=== PATIENT | male | born 1960 | race Caucasian/White ===

== ENCOUNTER 2020-12-07 08:22 | Outpatient (CLI) | payer OTHER, SELFPAY ==
[2020-12-07 18:41] LABS: Basophils Percent Auto 0.8 % (0.2-1.2); Eosinophils Absolute Auto 0.2 K/mm3 (0-0.3); Eosinophils Percent Auto 3.5 % (0-4.4); Hematocrit 41.2 % (42.0-52.0); Hemoglobin 14.6 g/dL (14.0-18.0); Immature Granulocyte Absolute 0.01 K/mm3 (0.00-0.031); Immature Granulocyte Percent A 0.2 % (0-0.5); Lymphocytes Absolute Auto 1.04 K/mm3 (0.9-3.2); Lymphocytes Percent Auto 21.7 % (18.3-44.2); Mean Corpuscular HGB Conc 35.4 g/dl (32-36); Mean Corpuscular Hemoglobin 32.5 pg (26-34); Mean Corpuscular Volume 91.8 fl (80-100); Mean Platelet Volume 10.1 fl (7.4-10.4); Monocytes Absolute Auto 0.6 K/mm3 (0.1-0.6); Monocytes Percent Auto 11.9 % (2.6-8.5); Neutrophils Percent Auto 61.9 % (45.5-73.1); Platelet Count Result 223 k/mm3 (150-375); Red Blood Count 4.49 M/mm3 (4.6-6.20); Red Cell Distribution Width 12.8 % (11.5-14.5); White Blood Count 4.8 K/mm3 (4.5-10.0)
[2020-12-07 18:44] LABS: Add Urine Microscopic? YES; Appearance Urine Clear (Clear); Bilirubin Urine Negative (Negative); Blood Urine Negative (Negative); Color Urine Yellow (Yellow); Glucose Urine UA 1+ mg/dL (Negative); Ketones Urine Negative (Negative); Leukocyte Esterase Ur Negative LEU/UL (Negative); Mucus Urine Rare /lpf; Nitrate Urine Negative (Negative); Protein Urine Negative (Negative); RBC Urine 0-2 /hpf (0-2); Specific Grav Ur 1.024 (1.001-1.035); Squamous Epithelial Cell Urine Rare /hpf (Few); Urobilinogen Urine Negative mg/dL (<2.0); WBC Urine 0-3 /hpf
[2020-12-07 18:54] LABS: Alanine Aminotransferase 30 U/L (4-50); Albumin Level 4.2 g/dL (3.5-5.1); Alkaline Phosphatase 51 U/L (38-126); Anion Gap 7 mmol/L (8-16); Aspartate Amino Transferase 21 U/L (17-59); Bilirubin,Total 0.7 mg/dL (0.2-1.3); Blood Urea Nitrogen 21 mg/dL (9-20); CRP 0.7 mg/dL (<1.0); Calcium 9.7 mg/dL (8.4-10.2); Carbon Dioxide 28 mmol/L (22-30); Chloride 103 mmol/L (98-107); Cholesterol 108 mg/dL (0-200); Estimated Glomerular Filt Rate > 60; Glucose 243 mg/dL (75-110); HDL Direct 34 mg/dL; Potassium 4.6 mmol/L (3.4-5.0); Sodium 138 mmol/L (137-145); Triglycerides 63 mg/dL (<150)
[2020-12-07 19:03] LABS: LDL Cholesterol Direct 61 mg/dL
[2020-12-07 19:08] LABS: Vitamin D 25 Hydroxy 57.9 ng/mL
[2020-12-07 19:22] LABS: Prostate Specific Antigen 2.8 ng/mL (< OR = 4.0)
[2020-12-07 19:58] LABS: Folic Acid > 20.0 ng/mL (2.76->20)
[2020-12-09 16:55] LABS: Thyroid Stimulating Immunoglob <89 % baseline (<140)
[2020-12-11 07:55] LABS: Testosterone Free 51.3 pg/mL (35.0-155.0); Testosterone Total 207 ng/dL (250-1100)
== END 2020-12-07 08:23 | disposition home or self-care (01) ==
LOC: ANHBWCLAB 08:25
PROVIDERS: PCP Family Medicine; Visit Provider Family Medicine
DX: Z51.81 Encounter for therapeutic drug level monitoring (principal); Z79.899 Other long term (current) drug therapy; Z82.62 Family history of osteoporosis; J45.909 Unspecified asthma, uncomplicated; R53.83 Other fatigue; E11.65 Type 2 diabetes mellitus with hyperglycemia; L72.3 Sebaceous cyst; N99.89 Other postprocedural complications and disorders of genitourinary system; Z00.00 Encounter for general adult medical examination without abnormal findings; I10 Essential (primary) hypertension
CPT/HCPCS: 36415; 80053; 80061; 81001; 82306; 82607; 82746; 84153; 84402; 84403; 84445; 84681; 85025; 86140; G0103

== ENCOUNTER 2021-03-07 07:47 | Outpatient (CLI) | payer OTHER, SELFPAY ==
[2021-03-07 20:26] LABS: Anion Gap 12 mmol/L (8-16); Blood Urea Nitrogen 19 mg/dL (9-20); Carbon Dioxide 25 mmol/L (22-30); Chloride 102 mmol/L (98-107); Estimated Glomerular Filt Rate > 60; Glucose 230 mg/dL (65-110); Potassium 4.4 mmol/L (3.4-5.0); Sodium 139 mmol/L (137-145)
[2021-03-07 20:32] LABS: Hemoglobin A1C 8.9 % (<5.7)
[2021-03-07 20:59] LABS: Prostate Specific Antigen 2.5 ng/mL (< OR = 4.0)
== END 2021-03-07 07:48 | disposition home or self-care (01) ==
LOC: ANHBWCLAB 07:48
PROVIDERS: PCP Family Medicine; Visit Provider Family Medicine
DX: E11.65 Type 2 diabetes mellitus with hyperglycemia (principal); I10 Essential (primary) hypertension
CPT/HCPCS: 36415; 80048; 83036; 84153; G0103

== ENCOUNTER 2021-04-02 09:09 | Emergency (ER) | payer OTHER, SELFPAY ==
--- NOTE | ~2021-04-02 | XR_ITS ---
EXAMINATION: XR abdomen/kub 1V DATE: 04/02/2021 09:58 INDICATION: Left flank pain TECHNIQUE: A supine view of the abdomen on 2 radiographs was obtained. COMPARISON: None. FINDINGS: 6 mm calcification projecting over the upper pole of the right kidney most likely a renal stone altho ugh differential includes a gallstone. 3 mm likely proximal left ureteral stone projecting along the lateral margin of the left psoas muscle near the tip of the left transverse process of L3. Multiple p hleboliths in the pelvis. Large amount of stool in the cecum, ascending and transverse colon which pa rtially obscures the region of the left kidney and lower pole of the right kidney. Lung bases are torsten ar. Heart size is normal. IMPRESSION: 1. Likely bilateral nephrolithiasis with 6 mm stone projecting over the upper pole of the right kidne y and 3 mm stone likely at the proximal left ureter. Reviewed, dictated and finalized at location A. IMPRESSION: 1. Likely bilateral nephrolithiasis with 6 mm stone projecting over the upper p ole of the right kidney and 3 mm stone likely at the proximal left ureter.
[2021-04-02 09:14] VITALS: BP 154/98; PULSE 81; RESP 16; TEMP 37.5; O2SAT 98
[2021-04-02 09:32] VITALS: BP 154/98; PULSE 81; RESP 16; TEMP 37.5; O2SAT 98
--- NOTE | 2021-04-02 09:57 | ED.BACK ---
HPI - Back Pain/Injury General Chief Complaint: Back Pain/Injury Stated Complaint: lower back left side pain Time Seen by Provider: 04/02/21 09:58 Source: patient and RN notes reviewed Mode of arrival: ambulatory Limitations: no limitations History of Present Illness HPI Narrative: 61-year-old male presents with concern for left flank pain. Reports symptoms started 3 days ago, describes a sharp knifelike pain. Denies any injury or trauma. Denies any aggravating or relieving factors. He denies fever, abdominal pain, vomiting. Reports less frequent bowel movements than normal, reports he had 3 small bowel movements yesterday but did not feel like he evacuated his bowels. MD elicited complaint: back pain Related Data Home Medications Medication Instructions Recorded Confirmed albuterol 90 mcg/actuation aerosol 90 mcg INHALATION Q6H PRN 08/30/20 04/02/21 inhaler Allergies Allergy/AdvReac Type Severity Reaction Status Date / Time shrimp Allergy Unknown Rash Verified 04/02/21 09:31 cat dander Allergy Rash Verified 04/02/21 09:31 Review of Systems Review of Systems: CONSTITUTIONAL: Denies malaise, chills, sweats, or fever. CARDIOVASCULAR: Denies chest pain, palpitations, or edema. RESPIRATORY: Denies cough or dyspnea. GASTROINTESTINAL: Denies abdominal pain, nausea, vomiting, diarrhea, bloody, or mucous stools. Reports less frequent bowel movements GENITOURINARY: Denies dysuria or hematuria. SKIN: Denies bruising, redness, swelling MUSCULOSKELETAL: Reports left flank pain. Denies joint pain or myalgia. NEUROLOGIC: Denies numbness, weakness All systems reviewed & are unremarkable except as noted in HPI and below PMFSH Past Medical History Medical History Asthma Diabetes Surgical History Surgical History History of colonoscopy History of left knee surgery History of umbilical hernia repair Family History Family History Father Heart problem Acute myocardial infarction Lung cancer Mother Hypertension Lupus Social History Social History Smoking status: Never smoker Tobacco type: cigars and smokeless tobacco Smokeless tobacco user: chewing tobacco Alcohol intake: current Alcohol use details: social Substance use: never 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 There is no relevant family history pertinent to the presenting complaint Exam Narrative: GENERAL: Well-appearing, well-nourished, and in no acute distress. HEAD: Normocephalic, atraumatic. EYES: PERRLA, conjunctivae clear ENT: Mucous membranes moist. NECK: Supple. CHEST: No respiratory distress. Clear to auscultation. No bony deformities, no asymmetry. Speaks in full sentences. HEART: Regular rate and rhythm. No murmur heard. ABDOMEN: Soft, nontender, nondistended, normal active bowel sounds, no palpable masses. No CVA tenderness EXTREMITIES: Grossly normal range of motion, gross normal strength and sensation. SKIN: Warm, dry, no rash. NEURO: Alert and oriented x3. PSYCH: Normal mood and affect Course Course Emergency Course: Patient is aware of diagnosis, understands and agrees to treatment plan. Anticipatory guidance given. Patient agrees to follow-up as directed and is aware of reasons to seek care at the emergency department. Portions of this record may have been created with voice recognition software Vital Signs Vital signs: Vital Signs Temperature 99.5 F 04/02/21 09:14 Pulse Rate 81 04/02/21 09:14 Respiratory Rate 16 04/02/21 09:14 Blood Pressure 154/98 H 04/02/21 09:14 Pulse Oximetry 98 04/02/21 09:14 Temperature 99.5 F 04/02/21 09:32 Pulse Rate
== END 2021-04-02 10:26 | disposition home or self-care (01) ==
PROVIDERS: Emergency Provider Nurse Practitioner; PCP Radiology Diagnostic Radiology
DX: N20.0 Calculus of kidney (principal); J45.909 Unspecified asthma, uncomplicated; E11.9 Type 2 diabetes mellitus without complications
CPT/HCPCS: 74018; 81003; 99213; G0463

== ENCOUNTER 2021-04-05 11:22 | Outpatient (CLI) | payer OTHER, SELFPAY ==
--- NOTE | ~2021-04-05 | XR_ITS ---
EXAMINATION: XR abdomen/kub 1V INDICATION: Left ureteral stone, left flank pain TECHNIQUE: Supine views of the abdomen were obtained on 2 radiographs. COMPARISON: 04/02/2021 FINDINGS: The previously described calcification projecting at the expected location of the proximal left ureter is not definitely identified. There is a 6 mm stone of the right kidney upper pole. Multi ple phleboliths are noted in the pelvis. The bowel gas pattern is normal. The visualized lung bases a re clear. There is mild osteoarthritis of the hips. IMPRESSION: 1. Previous suspected left proximal ureteral stone not definitely identified. 2. Right nephrolithiasis. Reviewed, dictated and finalized at location A.
== END 2021-04-05 11:23 | disposition home or self-care (01) ==
LOC: ANHIMG 11:28
PROVIDERS: PCP Family Medicine; Visit Provider Nurse Practitioner Family
DX: N20.0 Calculus of kidney (principal)
CPT/HCPCS: 74018

== ENCOUNTER 2021-04-05 12:24 | Outpatient (CLI) | payer OTHER, SELFPAY ==
[2021-04-05 13:13] LABS: EDCOVIDSCREEN Negative (Negative)
== END 2021-04-05 12:25 | disposition home or self-care (01) ==
PROVIDERS: PCP Family Medicine; Visit Provider Urology
DX: Z01.812 Encounter for preprocedural laboratory examination (principal); Z20.822 Contact with and (suspected) exposure to COVID-19
CPT/HCPCS: 87426; C9803

== ENCOUNTER 2021-04-05 12:37 | Day surgery (SDC) | payer OTHER, SELFPAY ==
[2021-04-05] VITALS (8 sets, daily range): BP systolic 90–143; BP diastolic 52–86; PULSE 76–94; RESP 13–20; TEMP 36.1–36.7; O2SAT 93–100; BMI 36.7
--- NOTE | ~2021-04-05 | XR_ITS ---
EXAMINATION: XR retrograde pyelo w/stent LT EXAM DATE: 04/05/2021 14:41 INDICATION: Left retrograde, stent placement. TECHNIQUE: Fluoroscopy used during XR retrograde pyelo w/stent LT performed by Dr. Saad velasquez MD, urologist. The radiologist Sha Jeffrey M.D. dictating this report of the image(s) availabl e was not present for the procedure. Total fluoroscopic time of 25 seconds. The DAP for this proced ure was 599 radcm2. A total of 7 images sent to PACS from the exam. There is no prior study for c omparison. FINDINGS: Left ureter was injected, calyces are unremarkable. A double-J ureteral stent was placed. Correlate with procedure note. IMPRESSION: Left ureteral stent in position. Reviewed, dictated and finalized at location B.
--- NOTE | 2021-04-05 13:11 | P.PNAN_ITS ---
Anes - Initial Pre Proc Eval Procedure: Operation Date: 04/05/21 14:00 Proposed Procedures p Cystoscopy, Left Ureteroscopy, Left Retrograde Pyelogram, Left Stone Extraction, Possible Left Stent Placement, - Saad Hays MD s Possible Holmium Laser Procedure - Saad Hays MD Date/Time: 04/05/21 13:11 Surgeon: Saad Hays MD Pre Op Diagnosis: left ureteral stone Patient Data Age: 61 Gender: M Height: Weight: Allergies Allergy/AdvReac Type Severity Reaction Status Date / Time cat dander Allergy Severe THROAT Verified 04/05/21 13:33 SWELLING shrimp Allergy Severe THROAT Verified 04/05/21 13:33 SWELLING Home Medications Medication Instructions Recorded Confirmed Type albuterol 90 mcg/actuation aerosol 90 mcg INHALATION Q6H PRN 08/30/20 04/02/21 History inhaler metformin 500 mg tablet 1,000 mg PO BID #360 tablet 12/28/20 04/02/21 Rx Ozempic 0.25 mg SUBCUT WEEKLY #3 ml NS 03/21/21 04/02/21 Rx hydrocodone-acetaminophen 1 tablet PO Q6H PRN #6 tablet 04/02/21 Rx ketorolac 10 mg PO Q6H PRN 5 Days #20 tablet 04/02/21 Rx tamsulosin [Flomax] 0.4 mg PO DAILY #10 cap 04/02/21 Rx Patient hx anesthesia problems: none Family hx anesthesia problems: none PMFSH Past Medical History Medical History Asthma Diabetes Surgical History Surgical History History of colonoscopy History of left knee surgery History of umbilical hernia repair Family History Family History Father Heart problem Acute myocardial infarction Lung cancer Mother Hypertension Lupus Social History Social History Smoking status: Never smoker Tobacco type: cigars and smokeless tobacco Smokeless tobacco user: chewing tobacco Alcohol intake: current Alcohol use details: social Substance use: never 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 Questions were solicited and answers provided to the satisfaction of the patient/family/POA.
[2021-04-05] MEDS: LACTATED RINGERS 1,000 ML 30 ML IV CONT (13:40)
[2021-04-05 13:49] LABS: Glucose Point of Care 190 mg/dl (65-105)
--- NOTE | 2021-04-05 13:54 | WPDHPUPDATE1 ---
History and Physical Update Update Date/Time: 04/05/21 13:54 History and Physical has been reviewed, including an updated exam of the patient. There are NO changes in the patient's condition. Risks, benefits, and alternatives have been discussed and questions answered. Patient agrees to proceed with procedure. proceed with cysto, left retrograde, left ureteroscopy with stone extraction, possible laser, stent placement
[2021-04-05] MEDS: ceFAZolin 2 GM/D5W 50 ML 2 GM/50 ML BAG IVPB (13:58)
--- NOTE | 2021-04-05 14:29 | P.OP_ITS ---
Procedure Note - Detailed Date of Procedure 04/05/21 Pre-op Diagnosis left ureteral stone Post-op Diagnosis same (Recent passage of stone) Procedure Performed Cystoscopy, left retrograde pyelogram, left ureteroscopy, left ureteral stent p lacement 4.8 Barbadian contour Surgeon Saad Hays MD Anesthesia general Description of Procedure Patient is taken the operative suite correctly identified. Once anesthesia was obtained he was placed in dorsal lithotomy position and prepped draped usual sterile fashion. Twenty-two Barbadian scope was inserted in the bladder. Dissection lateral lobe hypertrophy and a small median lobe. The bladder itself had no tumors present. Left ureteral orifice was edematous. At this point we cannulated with a guidewire and dilated with an 8/10 dilator. Rigid ureteral scope was then inserted into the orifice. The scope was able be passed all the way up to the UPJ area without any evidence of any ureteral stones. The ureter was pristine at this time. Pyelogram was performed to confirm placement of the stent. There was no hydronephrosis noted. 4.8 Barbadian contour stent was then placed with the proximal end in the lower pole/renal pelvis and the distal in the bladder. Bladder was drained. 2% viscous lidocaine was inserted into urethra patient is taken recovery room in stable condition. He will follow-up in the office in a week's time for stent removal. Patient has a known 6 mm right renal stone. Will need to see how visible that is for lithotripsy in the future. Drains Yes Packing No Pathology none sent Complications No immediate complications Condition stable Disposition PACU
[2021-04-05] MEDS: LIDOCAINE HCL 2% GEL UROJET 10 ML PKG MUCOUS MEM (14:30)
[2021-04-05 14:44] LABS: Glucose Point of Care 172 mg/dl (65-105)
--- NOTE | 2021-04-05 16:33 | SUR.PHASEII ---
1615 PT MEETS ANESTHESIA DISCHARGE CRITERIA. PT DRESSED AND WAITING FOR RIDE HOME.
== END 2021-04-05 16:34 | disposition home or self-care (01) ==
PROVIDERS: PCP Family Medicine; Visit Provider Urology
PROC: (CPT 52352; principal; 2021-04-05 14:00)
DX: N20.1 Calculus of ureter (principal); Z79.51 Long term (current) use of inhaled steroids; J45.909 Unspecified asthma, uncomplicated; E11.9 Type 2 diabetes mellitus without complications; E66.9 Obesity, unspecified; Z68.36 Body mass index [BMI] 36.0-36.9, adult; R10.9 Unspecified abdominal pain; R82.90 Unspecified abnormal findings in urine
CPT/HCPCS: 52332; 74018; 74420; 82948; 87426; A9270; C1769; C2617; C9803; J0330; J0690; J1100; J2405; J2704; J3010; J7120; Q9966

== ENCOUNTER 2021-05-17 13:59 | Outpatient (CLI) | payer OTHER, SELFPAY ==
--- NOTE | ~2021-05-17 | XR_ITS ---
EXAMINATION: XR abdomen/kub 1V DATE: 05/17/2021 14:33 INDICATION: Calcium kidney stone. TECHNIQUE: A supine view of the abdomen on 2 radiographs was obtained. COMPARISON: Abdomen radiographs 04/05/2021 FINDINGS: There are no dilated loops of bowel. There are phleboliths in the pelvis. There is a 7 mm s tone in right kidney. IMPRESSION: 1. 7 mm stone in right kidney. Reviewed, dictated and finalized at location A.
== END 2021-05-17 14:00 | disposition home or self-care (01) ==
LOC: ANHIMG 14:05
PROVIDERS: PCP Family Medicine; Visit Provider Nurse Practitioner Family
DX: N20.0 Calculus of kidney (principal)
CPT/HCPCS: 74018

== ENCOUNTER 2021-07-18 08:26 | Outpatient (CLI) | payer OTHER, SELFPAY ==
[2021-07-20 03:50] LABS: Sex Hormone Binding Globulin 19 nmol/L (22-77)
[2021-07-21 14:47] LABS: FSH 3.9 mIU/mL (1.6-8.0); Testosterone Free 64.5 pg/mL (35.0-155.0); Testosterone Total 321 ng/dL (250-1100)
== END 2021-07-18 08:27 | disposition home or self-care (01) ==
LOC: ANHBWCLAB 08:28
PROVIDERS: PCP Family Medicine; Visit Provider Family Medicine
DX: E11.65 Type 2 diabetes mellitus with hyperglycemia (principal); Z68.37 Body mass index [BMI] 37.0-37.9, adult
CPT/HCPCS: 36415; 83001; 83002; 83036; 84270; 84402; 84403

== ENCOUNTER 2021-10-31 11:13 | Outpatient (CLI) | payer OTHER, SELFPAY ==
[2021-10-31 22:24] LABS: Hemoglobin A1C 6.9 % (<5.7)
== END 2021-10-31 11:14 | disposition home or self-care (01) ==
LOC: ANHBWCLAB 11:14
PROVIDERS: PCP Family Medicine; Visit Provider Family Medicine
DX: E11.65 Type 2 diabetes mellitus with hyperglycemia (principal)
CPT/HCPCS: 36415; 83036

== ENCOUNTER 2022-03-16 07:28 | Outpatient (CLI) | payer OTHER, SELFPAY ==
[2022-03-16 19:16] LABS: Alanine Aminotransferase 29 U/L (6-50); Albumin Level 4.2 g/dL (3.5-5.1); Alkaline Phosphatase 74 U/L (38-126); Anion Gap 11 mmol/L (8-16); Aspartate Amino Transferase 51 U/L (17-59); Bilirubin,Total 0.5 mg/dL (0.2-1.3); Blood Urea Nitrogen 24 mg/dL (9-20); Calcium 9.6 mg/dL (8.4-10.2); Carbon Dioxide 24 mmol/L (22-30); Chloride 102 mmol/L (98-107); Estimated Glomerular Filt Rate > 60; Glucose 189 mg/dL (65-110); Potassium 4.2 mmol/L (3.4-5.0); Sodium 137 mmol/L (137-145)
[2022-03-16 19:25] LABS: Creatinine Urine 175.6 mg/dL
[2022-03-16 19:29] LABS: Hemoglobin A1C 6.6 % (<5.7)
[2022-03-16 19:30] LABS: MALB Creatinine Ratio 9.6 mg/g (0-30); Microalbumin Urine Random 16.8 mg/L (0-16.7)
[2022-03-16 19:41] LABS: Prostate Specific Antigen 3.2 ng/mL (< OR = 4.0)
[2022-03-16 20:29] LABS: Hematocrit 45.7 % (42.0-52.0); Hemoglobin 14.1 g/dL (14.0-18.0); Mean Corpuscular HGB Conc 30.9 g/dl (32-36); Mean Corpuscular Hemoglobin 28.3 pg (26-34); Mean Corpuscular Volume 91.6 fl (80-100); Mean Platelet Volume 9.9 fl (7.4-10.4); Platelet Count Result 251 k/mm3 (150-375); Red Blood Count 4.99 M/mm3 (4.6-6.20); Red Cell Distribution Width 13.5 % (11.5-14.5); White Blood Count 6.5 K/mm3 (4.5-10.0)
[2022-03-21 10:47] LABS: Testosterone Free 47.7 pg/mL (35.0-155.0); Testosterone Total 228 ng/dL (250-1100)
== END 2022-03-16 07:29 | disposition home or self-care (01) ==
LOC: ANHBWCLAB 07:29
PROVIDERS: PCP Family Medicine; Visit Provider Family Medicine
DX: R79.89 Other specified abnormal findings of blood chemistry (principal); E11.65 Type 2 diabetes mellitus with hyperglycemia; E66.9 Obesity, unspecified; R53.83 Other fatigue
CPT/HCPCS: 36415; 80053; 82043; 83036; 84153; 84402; 84403; 85027; G0103

== ENCOUNTER 2022-07-07 07:35 | Outpatient (CLI) | payer OTHER, SELFPAY ==
[2022-07-07 18:51] LABS: Appearance Urine Clear (Clear); Bilirubin Urine Negative (Negative); Blood Urine Negative (Negative); Color Urine Yellow (Yellow); Glucose Urine UA Trace mg/dL (Negative); Ketones Urine Negative (Negative); Leukocyte Esterase Ur Negative LEU/UL (NEGATIVE); Nitrate Urine Negative (Negative); Protein Urine Trace mg/dL (Negative); Specific Grav Ur 1.025 (1.001-1.035); Urobilinogen Urine 0.2 mg/dL (<2.0)
[2022-07-07 19:00] LABS: Bacteria Urine Trace /hpf; Mucus Urine Rare /lpf; Squamous Epithelial Cell Urine Rare /hpf (Few); WBC Urine 0-3 /hpf (0-3)
[2022-07-07 19:03] LABS: Add Urine Microscopic? YES
== END 2022-07-07 07:36 | disposition home or self-care (01) ==
LOC: ANHBWCLAB 07:36
PROVIDERS: PCP Family Medicine; Visit Provider Family Medicine
DX: R39.9 Unspecified symptoms and signs involving the genitourinary system (principal)
CPT/HCPCS: 81001; 87086

== ENCOUNTER 2022-07-16 13:09 | Emergency (ER) | payer OTHER, SELFPAY ==
[2022-07-16 14:48] VITALS: BP 151/87; PULSE 93; RESP 16; TEMP 36.6; O2SAT 99
--- NOTE | 2022-07-16 15:04 | ED.URI ---
HPI - URI/Sore Throat General Chief Complaint: Upper Respiratory Infection Stated Complaint: Low Back Pain Time Seen by Provider: 07/16/22 15:00 Source: patient, RN notes reviewed and old records reviewed Mode of arrival: ambulatory Limitations: no limitations History of Present Illness HPI Narrative: 62-year-old male who presents to [facility] with complaints of urinary frequency for the past 2 week, reports he had negative urine test at his doctors, report low back pain with no known injury. Patient states that on Sunday he started also with congestion and cold symptoms with no known fevers. Patient reports that he has not had flu shot this season. MD elicited complaint: cough, rhinorrhea, nasal congestion and other (low back pain) Onset (ago): day(s) (4-5) Pain scale (0-10): 7 Treatments prior to arrival: other (otc cough syrup) Related Data Home Medications Medication Instructions Recorded Confirmed albuterol 90 mcg/actuation aerosol 90 mcg inhalation Q6H PRN Dyspnea 08/30/20 09/05/21 inhaler Allergies Allergy/AdvReac Type Severity Reaction Status Date / Time cat dander Allergy Severe THROAT Verified 04/05/22 07:59 SWELLING shrimp Allergy Severe THROAT Verified 04/05/22 07:59 SWELLING Review of Systems Review of Systems: CONSTITUTIONAL: Reports malaise, no chills, sweats, or fever. EYES: Denies visual changes, redness, or discharge. ENT: Reports rhinorrhea, congestion, sinus pain, no otalgia or sore throat. CARDIOVASCULAR: Denies chest pain, palpitations, or edema. RESPIRATORY: Reports cough.? Denies dyspnea. GASTROINTESTINAL: Denies abdominal pain, nausea, vomiting, diarrhea SKIN: Denies rash or itching. MUSCULOSKELETAL:Reports myalgia low back pain NEUROLOGIC: Denies headache. All systems reviewed & are unremarkable except as noted in HPI and below PMFSH Past Medical History Medical History Asthma Diabetes Surgical History Surgical History History of colonoscopy History of left knee surgery History of umbilical hernia repair Family History Family History Father Heart problem Acute myocardial infarction Lung cancer Mother Hypertension Lupus Social History Social History Smoking status: Never smoker Tobacco type: cigars and smokeless tobacco Smokeless tobacco user: chewing tobacco Second hand tobacco smoke exposure: No Alcohol intake: former Alcohol use details: SOCIALLY YEARS AGO Substance use: never Additional occupation/education comments: [employer] Gender identity (if verbalized by the patient): Male Spiritual care concerns: No Comments At time of signature, agree with nursing past medical, surgical, social and family history. There is no relevant family history pertinent to the presenting complaint Exam Narrative: GENERAL: Well-appearing, well-nourished, obese and in no acute distress. HEAD: Normocephalic EYES: PERRLA, conjunctivae clear ENT: Nares clear, turbinates edematous and erythematous, clear discharge. Mucous membranes moist. TM pearly miranda with dull light reflex bilaterally; no tragal tenderness. Oropharynx erythematous without lesions. Tonsils not enlarged and without exudate, no drooling, no hoarseness, no trismus, uvula midline.post nasal drainage NECK: Supple. No lymphadenopathy CHEST: Clear to auscultation, breath sounds equal. No wheezing, rhonchi, rales, or stridor. No respiratory distress, speaks in full sentences.cough SAO2 99% on room air HEART: Regular rate and rhythm. No murmur heard. SKIN: Warm, dry, no rash. NEURO: Alert and oriented x3. PSYCH: Normal mood and affect Course Course Emergency Course: Patient is aware of diagnosis, understands and agrees to treatment p
== END 2022-07-16 15:37 | disposition home or self-care (01) ==
PROVIDERS: Emergency Provider Registered Nurse; PCP Family Medicine
DX: J10.1 Influenza due to other identified influenza virus with other respiratory manifestations (principal); F17.290 Nicotine dependence, other tobacco product, uncomplicated; F17.220 Nicotine dependence, chewing tobacco, uncomplicated; J45.909 Unspecified asthma, uncomplicated; E11.9 Type 2 diabetes mellitus without complications
CPT/HCPCS: 81003; 87804; 99213; G0463

== ENCOUNTER 2022-11-27 08:51 | Outpatient (CLI) | payer OTHER, SELFPAY ==
[2022-11-27 18:37] LABS: Alanine Aminotransferase 24 U/L (6-50); Albumin Level 4.2 g/dL (3.5-5.1); Alkaline Phosphatase 64 U/L (38-126); Aspartate Amino Transferase 43 U/L (17-59); Bilirubin,Total 0.7 mg/dL (0.2-1.3)
[2022-11-27 19:09] LABS: Prostate Specific Antigen 3.6 ng/mL (< OR = 4.0)
[2022-11-27 19:17] LABS: Appearance Urine Cloudy (Clear); Bacteria Urine None Seen /hpf; Bilirubin Urine Negative (Negative); Blood Urine 1+ (Negative); Color Urine Yellow (Yellow); Glucose Urine UA Negative (Negative); Ketones Urine Negative (Negative); Leukocyte Esterase Ur Negative LEU/UL (NEGATIVE); Nitrate Urine Negative (Negative); Non Pathogenic Casts 0-2; Protein Urine Trace mg/dL (Negative); RBC Urine 0-2 /hpf (0-2); Specific Grav Ur 1.028 (1.001-1.035); Squamous Epithelial Cell Urine None seen /hpf (Few); WBC Urine 0-5 /hpf (0-3); pH Urine 5.5 (5.0-9.0)
[2022-11-27 19:24] LABS: Add Urine Microscopic? YES
[2022-11-27 19:29] LABS: Hematocrit 42.1 % (42.0-52.0); Hemoglobin 13.5 g/dL (14.0-18.0); Mean Corpuscular HGB Conc 32.1 g/dl (32-36); Mean Corpuscular Hemoglobin 29.3 pg (26-34); Mean Corpuscular Volume 91.3 fl (80-100); Mean Platelet Volume 9.8 fl (7.4-10.4); Platelet Count Result 252 k/mm3 (150-375); Red Blood Count 4.61 M/mm3 (4.6-6.20); Red Cell Distribution Width 13.2 % (11.5-14.5); White Blood Count 6.4 K/mm3 (4.5-10.0)
[2022-11-27 19:32] LABS: Hemoglobin A1C 6.4 % (<5.7)
[2022-12-01 15:23] LABS: Testosterone Free 95.5 pg/mL (35.0-155.0); Testosterone Total 355 ng/dL (250-1100)
== END 2022-11-27 08:52 | disposition home or self-care (01) ==
PROVIDERS: Nurse Practitioner Family; PCP Family Medicine; Visit Provider Family Medicine
DX: R79.89 Other specified abnormal findings of blood chemistry (principal); E11.9 Type 2 diabetes mellitus without complications; N20.0 Calculus of kidney; R10.9 Unspecified abdominal pain
CPT/HCPCS: 36415; 80076; 81001; 83036; 84153; 84402; 84403; 85027; G0103

== ENCOUNTER 2022-11-27 11:13 | Outpatient (CLI) | payer OTHER, SELFPAY ==
--- NOTE | ~2022-11-27 | CT_ITS ---
EXAMINATION: CT abdomen pelvis wo con DATE: 11/27/2022 11:58 INDICATION: Right flank pain TECHNIQUE: Computed tomography (CT) of the abdomen and pelvis was performed without intravenous contr ast. The dose-length product (DLP) was 620.49 mGy-cm. Automated exposure control and iterative recons truction technique were employed. COMPARISON: None FINDINGS: Minimal dependent atelectasis is present in the lung bases. The heart size is normal. The l iver, spleen, pancreas, gallbladder, and adrenal glands are normal. There is a [address] one of the left kidney lower pole. There is a 3 mm stone at the right ureterovesicular junction. A pu nctate 1 mm stone is noted in the distal right ureter. There is mild right hydronephrosis. There are three nonobstructing stones of the right kidney which measure up to 9 mm. No pathologically enlarged abdominal or pelvic lymph nodes are identified. No free intraperitoneal gas or evidence of bowel obst ruction. The appendix is normal. There is moderate lumbar spondylosis. IMPRESSION: 1. 3 mm stone at the right ureterovesicular junction and 1 mm stone of the distal right ureter causin g mild right hydronephrosis. 2. Bilateral nonobstructing nephrolithiasis. Reviewed, dictated and finalized at location B. IMPRESSION: 1. 3 mm stone at the right ureterovesicular junction and 1 mm stone of the dist al right ureter causing mild right hydronephrosis. 2. Bilateral nonobstructing nephrolithiasis.
== END 2022-11-27 11:14 | disposition home or self-care (01) ==
PROVIDERS: PCP Family Medicine; Visit Provider Nurse Practitioner Family
DX: N20.0 Calculus of kidney (principal); R10.9 Unspecified abdominal pain; N20.1 Calculus of ureter
CPT/HCPCS: 36415; 74176; 80076; 81001; 83036; 84153; 84402; 84403; 85027; G0103

== ENCOUNTER 2023-06-25 09:40 | Outpatient (CLI) | payer OTHER, SELFPAY ==
[2023-06-25 19:11] LABS: Alanine Aminotransferase 29 U/L (6-50); Albumin Level 4.5 g/dL (3.5-5.1); Alkaline Phosphatase 67 U/L (38-126); Anion Gap 15 mmol/L (8-16); Aspartate Amino Transferase 43 U/L (17-59); Bilirubin,Total 0.9 mg/dL (0.2-1.3); Blood Urea Nitrogen 20 mg/dL (9-20); Calcium 9.8 mg/dL (8.4-10.2); Carbon Dioxide 24 mmol/L (22-30); Chloride 101 mmol/L (98-107); Cholesterol 131 mg/dL (0-200); Estimated Glomerular Filt Rate > 60; Glucose 302 mg/dL (65-110); HDL Direct 35 mg/dL; Potassium 4.4 mmol/L (3.4-5.0); Sodium 140 mmol/L (137-145); Triglycerides 67 mg/dL (<150)
[2023-06-25 19:22] LABS: LDL Cholesterol Direct 73 mg/dL
[2023-06-25 22:53] LABS: Creatinine Urine 111.5 mg/dL
[2023-06-25 22:54] LABS: MALB Creatinine Ratio 13.3 mg/g (0-30); Microalbumin Urine Random 14.8 mg/L (0-16.7)
== END 2023-06-25 09:41 | disposition home or self-care (01) ==
LOC: ANHBWCLAB 09:42
PROVIDERS: PCP Nurse Practitioner Adult Health; Visit Provider Nurse Practitioner Adult Health
DX: E11.9 Type 2 diabetes mellitus without complications (principal)
CPT/HCPCS: 36415; 80053; 80061; 82043; 83036

== ENCOUNTER 2023-07-13 13:05 | Emergency (ER) | payer OTHER, SELFPAY ==
--- NOTE | ~2023-07-13 | XR_ITS ---
XR pelvis 1-2V 07/13/2023 14:43 Indication: Pelvic pain. Procedure: AP pelvis Comparison: CT dated 11/27/2022 Findings: There is bilateral osteoarthritis of the hips, severe on the right and moderate on the left . Pelvic rings are intact. Impression: 1: Bilateral osteoarthritis of the hips, right greater than left. Reviewed, dictated and finalized at location B. 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
[2023-07-13 13:23] VITALS: BP 151/91; PULSE 98; RESP 16; TEMP 36.7; O2SAT 97
--- NOTE | 2023-07-13 14:26 | ED.EXTPRO ---
HPI - Extremity Problem General Chief complaint: Extremity Problem,Nontraumatic Stated complaint: Right Hip Pain Time Seen by Provider: 07/13/23 14:26 Source: patient, RN notes reviewed and old records reviewed Mode of arrival: ambulatory Limitations: no limitations History of Present Illness HPI Narrative: 63 year old male presents [facility] Care with complaints of right hip pain which has increased in intensity since Sunday. Patient reports that he has had some hip pain for the past 4 years since he felt a pop in his hip. Patient reports that pain in his right hip goes into his right thigh also and is especially aggravated by walking. Patient reports that he was told by chiropracter in the past that he had some disc narrowing in his lower back.Patient reports that he has taken some Tylenol and Ibuprofen for his pain. MD Complaint: other (right hip pain) Onset (ago): day(s) (5-6 days) Location: right and other (hip) Severity scale (1-10): 8 Quality: aching Radiation: distal Relieving factors: rest Exacerbating factors: walking Related Data Home Medications Medication Instructions Recorded Confirmed albuterol 90 mcg/actuation aerosol 90 mcg inhalation Q6H PRN Dyspnea 08/30/20 07/13/23 inhaler Allergies Allergy/AdvReac Type Severity Reaction Status Date / Time cat dander Allergy Severe THROAT Verified 07/13/23 13:22 SWELLING shrimp Allergy Severe THROAT Verified 07/13/23 13:22 SWELLING Review of Systems Review of Systems: CONSTITUTIONAL: Denies fever, chills, or sweats. EYES: Denies visual changes, redness, or discharge. ENT: Denies rhinorrhea, congestion, sore throat, or otalgia. CARDIOVASCULAR: Denies chest pain, palpitations, or edema. RESPIRATORY: Denies cough or dyspnea. GASTROINTESTINAL: Denies abdominal pain, nausea, vomiting, or diarrhea. GENITOURINARY: Denies dysuria or hematuria. SKIN: Denies rash or itching. MUSCULOSKELETAL: Denies back pain,positive for right hip pain , or myalgia. NEUROLOGIC: Denies headache, numbness, or weakness. PSYCHIATRIC: Denies anxiety or depression. All systems reviewed & are unremarkable except as noted in HPI and below PMFSH Past Medical History Medical History Asthma Diabetes Surgical History Surgical History History of colonoscopy History of left knee surgery History of umbilical hernia repair Family History Family History Father Heart problem Acute myocardial infarction Lung cancer Mother Hypertension Lupus Social History Social History Smoking status: Never smoker Tobacco type: cigars and smokeless tobacco Smokeless tobacco user: chewing tobacco Second hand tobacco smoke exposure: No Alcohol intake: former Alcohol use details: SOCIALLY YEARS AGO Substance use: never Lack of Transportation: No Lack of Food: Never True Current Housing: I Have Housing Concerned About Future Housing: No Difficulty Paying Gas/Electric Bills: No Difficulty Paying for Meds: No Currently Unemployed: No Education: Bachelor's Degree Difficulty w/ Childcare or Family Care: No Living arrangements: with family Occupation/Education: occupation 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 There is no relevant family history pertinent to the presenting complaint Exam Narrative: GENERAL: Well-appearing, well-nourished, obese and in no acute distress. HEAD: Normocephalic, atraumatic. EYES: PERRLA and EOMI. ENT: Nares clear, no rhinorrhea or epistaxis. Mucous membranes moist. NECK: Supple. no lymphadenopathy CHEST
== END 2023-07-13 15:16 | disposition home or self-care (01) ==
PROVIDERS: Emergency Provider Registered Nurse; PCP Family Medicine
DX: M25.551 Pain in right hip (principal); E11.9 Type 2 diabetes mellitus without complications; J45.909 Unspecified asthma, uncomplicated; F17.290 Nicotine dependence, other tobacco product, uncomplicated
CPT/HCPCS: 72170; 99213; G0463

== ENCOUNTER 2023-09-19 08:21 | Outpatient (CLI) | payer OTHER, SELFPAY ==
[2023-09-19 18:31] LABS: Hemoglobin A1C 7.8 % (<5.7)
[2023-09-19 18:43] LABS: Alanine Aminotransferase 21 U/L (6-50); Albumin Level 4.2 g/dL (3.5-5.1); Alkaline Phosphatase 68 U/L (38-126); Anion Gap 8 mmol/L (8-16); Aspartate Amino Transferase 62 U/L (17-59); Bilirubin,Total 0.8 mg/dL (0.2-1.3); Blood Urea Nitrogen 16 mg/dL (9-20); Calcium 9.7 mg/dL (8.4-10.2); Carbon Dioxide 25 mmol/L (22-30); Chloride 104 mmol/L (98-107); Cholesterol 109 mg/dL (0-200); Estimated Glomerular Filt Rate > 60; Glucose 158 mg/dL (65-110); HDL Direct 34 mg/dL; Potassium 4.4 mmol/L (3.4-5.0); Sodium 137 mmol/L (137-145); Triglycerides 69 mg/dL (<150)
[2023-09-19 18:54] LABS: LDL Cholesterol Direct 58 mg/dL
[2023-09-19 19:08] LABS: Creatinine Urine 314.2 mg/dL
[2023-09-19 19:10] LABS: Prostate Specific Antigen 4.4 ng/mL (< OR = 4.0)
[2023-09-19 19:15] LABS: MALB Creatinine Ratio 8.1 mg/g (0-30); Microalbumin Urine Random 25.6 mg/L (0-16.7)
== END 2023-09-19 08:22 | disposition home or self-care (01) ==
LOC: ANHBWCLAB 08:22
PROVIDERS: PCP Family Medicine; Visit Provider Nurse Practitioner Adult Health
DX: E11.9 Type 2 diabetes mellitus without complications (principal); Z12.5 Encounter for screening for malignant neoplasm of prostate
CPT/HCPCS: 36415; 80053; 80061; 82043; 83036; 84153; G0103

== ENCOUNTER 2023-12-18 11:03 | Outpatient (CLI) | payer OTHER, SELFPAY ==
[2023-12-18 21:05] LABS: Alanine Aminotransferase 25 U/L (6-50); Albumin Level 4.3 g/dL (3.5-5.1); Alkaline Phosphatase 75 U/L (38-126); Anion Gap 6 mmol/L (4-12); Aspartate Amino Transferase 83 U/L (17-59); Bilirubin,Total 0.7 mg/dL (0.2-1.3); Blood Urea Nitrogen 16 mg/dL (9-20); Calcium 9.5 mg/dL (8.4-10.2); Carbon Dioxide 26 mmol/L (22-30); Chloride 105 mmol/L (98-107); Cholesterol 109 mg/dL (0-200); Estimated Glomerular Filt Rate > 60; Glucose 101 mg/dL (65-110); HDL Direct 39 mg/dL; Potassium 4.1 mmol/L (3.4-5.0); Sodium 137 mmol/L (137-145); Triglycerides 88 mg/dL (<150)
[2023-12-18 21:17] LABS: LDL Cholesterol Direct 59 mg/dL
[2023-12-18 21:28] LABS: Hemoglobin A1C 6.2 % (<5.7)
[2023-12-18 21:43] LABS: Creatinine Urine 192.3 mg/dL
[2023-12-18 21:47] LABS: Microalbumin Urine Random 15.3 mg/L (0-16.7)
== END 2023-12-18 11:04 | disposition home or self-care (01) ==
LOC: ANHBWCLAB 11:04
PROVIDERS: PCP Nurse Practitioner Adult Health; Visit Provider Nurse Practitioner Adult Health
DX: E11.9 Type 2 diabetes mellitus without complications (principal)
CPT/HCPCS: 36415; 80053; 80061; 82043; 83036

== ENCOUNTER 2024-03-05 08:06 | Outpatient (CLI) | payer OTHER, SELFPAY ==
[2024-03-05 20:14] LABS: Alanine Aminotransferase 20 U/L (6-50); Albumin Level 4.5 g/dL (3.5-5.1); Alkaline Phosphatase 60 U/L (38-126); Anion Gap 12 mmol/L (4-12); Aspartate Amino Transferase 64 U/L (17-59); Bilirubin,Total 0.8 mg/dL (0.2-1.3); Blood Urea Nitrogen 23 mg/dL (9-20); Calcium 9.2 mg/dL (8.4-10.2); Carbon Dioxide 23 mmol/L (22-30); Chloride 102 mmol/L (98-107); Cholesterol 115 mg/dL (0-200); Estimated Glomerular Filt Rate > 60; Glucose 127 mg/dL (65-110); HDL Direct 36 mg/dL; Potassium 4.4 mmol/L (3.4-5.0); Sodium 137 mmol/L (137-145); Triglycerides 62 mg/dL (<150)
[2024-03-05 20:25] LABS: LDL Cholesterol Direct 52 mg/dL
[2024-03-05 20:45] LABS: Prostate Specific Antigen 4.6 ng/mL (< OR = 4.0)
[2024-03-05 21:19] LABS: Creatinine Urine 166.6 mg/dL
[2024-03-05 21:21] LABS: Hemoglobin A1C 6.3 % (<5.7)
[2024-03-05 21:23] LABS: MALB Creatinine Ratio 10.1 mg/g (0-30); Microalbumin Urine Random 16.9 mg/L (0-16.7)
[2024-03-10 10:25] LABS: Testosterone Free 57.1 pg/mL (35.0-155.0); Testosterone Total 315 ng/dL (250-1100)
== END 2024-03-05 08:07 | disposition home or self-care (01) ==
LOC: ANHBWCLAB 08:07
PROVIDERS: PCP Nurse Practitioner Adult Health; Visit Provider Nurse Practitioner Adult Health
DX: E11.9 Type 2 diabetes mellitus without complications (principal); R79.89 Other specified abnormal findings of blood chemistry; Z12.5 Encounter for screening for malignant neoplasm of prostate
CPT/HCPCS: 36415; 80053; 80061; 82043; 82565; 83036; 84153; 84402; 84403; G0103

== ENCOUNTER 2024-09-26 12:10 | Emergency (ER) | payer OTHER, SELFPAY ==
--- OUTSIDE RECORDS SUMMARY | 2024-09-26 12:14 | XMS_ITS | Referral Summary ---
Author Organization [facility] [address] [facility] Address [address] [facility] [place] [address] Care Team Providers Care Animal Shelter Clerk Name Role Phone Aramis Cruz MD Primary Care Provider [phone] Travis Berrios MD Unavailable [phone] Encounters Date Type Department Care Team Description 09/09/2024 1:00 PM LATHE SET UP OPERATOR Telemedicine [facility] Medical [facility] Orthopedics and Sports Medicine [address] [place] [address] [address] [phone] Stacia Lind NP Aftercare following right hip joint replacement surgery (Primary Dx) 09/02/2024 Telephone [facility] Orthopedics and Sports Medicine [address] [place] [address] [address] [place] [phone] Travis Berrios MD post op questions 08/25/2024 [facility] Post Discharge Follow up phone call [address] [address] Isamar Ahumada 08/22/2024 [facility] Post Discharge Follow up phone call [address] [address] Isamar Ahumada 08/22/2024 [facility] Post Discharge Follow up phone call [address] [address] Isamar Ahumada 08/20/2024 7:26 AM LATHE SET UP OPERATOR - 08/21/2024 2:39 PM LATHE SET UP OPERATOR Hospital Encounter [address] [address] Travis Berrios MD Primary osteoarthritis of right hip Discharge Disposition: Discharge to home or self care 08/20/2024 10:00 AM LATHE SET UP OPERATOR - 08/20/2024 12:25 PM LATHE SET UP OPERATOR Surgery [facility] Operating Room [address] [place] [address] Travis Berrios MD Right Total Hip Arthroplasty- Anterior Approach 08/20/2024 9:38 AM LATHE SET UP OPERATOR Anesthesia Event [facility] Operating Room [address] [place] [address] Angelina Malone MD Reynolds, Manav Sierra MD 08/04/2024 Telephone [facility] Medical [facility] Orthopedics and Sports Medicine [address] [place] [address] [address] [place] [address] Travis Berrios MD 08/04/2024 Documentation [facility] Orthopedics and Sports Medicine [address] [place] [address] [address] [place] [address] Ashley Louis MA Surgical Clearance 07/28/2024 10:00 AM LATHE SET UP OPERATOR Lab [address] [address] 07/28/2024 9:40 AM LATHE SET UP OPERATOR [address] [address] Pre-operative exam 07/28/2024 9:36 AM LATHE SET UP OPERATOR - 07/28/2024 11:59 PM LATHE SET UP OPERATOR Hospital Encounter [facility] Imaging Center [address] [place] [address] Pre-operative exam Discharge Disposition: Discharge to home or self care 07/28/2024 9:36 AM LATHE SET UP OPERATOR - 07/28/2024 11:59 PM LATHE SET UP OPERATOR Hospital Encounter [facility] Cardiology [address] [place] [address] Pre-operative exam Discharge Disposition: Discharge to home or self care from Last 3 Months Allergies No known active allergies Medications Ventolin HFA 90 mcg/actuation inhaler Inhale 2 puffs every 6 (six) hours as needed Active metFORMIN (GLUCOPHAGE) 500 mg tablet Take 1 tablet (500 mg total) by mouth 2 (two) times a day with meals 1 Active fluticasone propion-salmeteroL (ADVAIR DISKUS) 250-50 mcg/dose diskus inhaler Inhale 2 puffs 2 (two) times a day Rinse mouth with water after use. Do not swallow. Active tirzepatide (MOUNJARO) 10 mg/0.5 mL pen injector Inject 10 mg under the skin once a week Takes on Sundays Active ascorbic acid (VITAMIN C) 500 mg tablet,chewableInd ications:Vitamin deficiency prevention Take 1 tablet/chew tab (500 mg total) by mouth daily 30 tablet/chew tab 5 Active aspirin 81 mg enteric coated tabletIndications: Deep Vein Thrombosis Prevention Take 1 tablet (81 mg total) by mouth 2 (two) times a day 84 tablet 5 08/21/19 26 Active celecoxib (CeleBREX) 200 mg capsuleIndications :Pain Take 1 capsule (200 mg total) by mouth 2 (two) times a day 84 capsule 5 Active ferrous sulfate 325 mg (65 mg of elemental iron) tabletIndications: Iron Deficiency Anemia,Anemia prevention Take 1 tablet (325 mg total) by mouth daily with breakfast 30 tablet 5 08/21/19 26 Active ondansetron ODT (ZOFRAN-ODT) 4 mg disintegrating tabletIndications: nausea and vomiting Take 1 tablet (4 mg total) by mouth every 6 (six) hours as needed for nausea or vomiting 20 tablet 2 5 Active oxyCODONE-acetamin ophen (PERCOCET) 5-325 mg per tabletIndications: Pain Take 1-2 tablets by mouth every 4 (four) hours as needed for pain 40 tablet 5 Active senna-docusate (PERICOLACE) 8.6-50 mgIndications:cons tipation Take 2 tablets by mouth 2 (two) times a day 60 tablet 2 5 Active Active Problems Problem Noted Date Diagnosed Date Primary osteoarthritis of right hip 08/14/2024 Social History Tobacco Use Types Packs/Day Years Used Date Smoking Tobacco: Never Smokeless Tobacco: Never Tobacco Cessation:Counseling Given: Not Answered AUDIT-C Answer Date Recorded Q1: How often do you have a drink containing alc ohol? 2-4 times a month 08/15/2024 Q2: How many drinks containi ng alcohol do you have on a typical day when you are drinking? 1 or 2 08/15/2024 Frequency of Binge Drinking Not on file 08/06 PHQ-2 Answer Date Recorded PHQ-2 Total Score (If total score is 3 or more points, staff should administer the PHQ-9) 0 08/20/2024 Personal Safety Answer Date Recorded Have you ever been in or are you currently in a harmful physical or emotional relationship or is someone making you feel afraid or unsafe? Denies 08/20/2024 Sex and Gender Information Value Date Recorded Sex Assigned at Not on file Legal Sex Male 4:33 PM LATHE SET UP OPERATOR Gender Identity Not on file Sexual Orientation Not on file Last Filed Vital Signs Vital Sign Reading Time Taken Comments Blood Pressure 131/78 08/21/2024 2:06 AM LATHE SET UP OPERATOR Pulse 95 08/21/2024 2:06 AM LATHE SET UP OPERATOR Temperature 36.4 C (97.6 F) 08/21/2024 2:06 AM LATHE SET UP OPERATOR Respiratory Rate 18 08/21/2024 2:06 AM LATHE SET UP OPERATOR Oxygen Saturation 97% 08/21/2024 2:06 AM LATHE SET UP OPERATOR Inhaled Oxygen Concentration - - Weight 110 kg (242 lb 8.1 oz) 08/20/2024 7:36 AM LATHE SET UP OPERATOR Height 180.3 cm (5' 11 ) 08/20/2024 7:36 AM LATHE SET UP OPERATOR Body Mass Index 33.82 08/20/2024 7:36 AM LATHE SET UP OPERATOR Plan of Treatment Not on file Medical Devices Implanted Type Area Prn Physical Therapist Device Identifier Shelf Expiration Date Model / Serial / Lot [employer] [place] 58mm Sector Hip Shell Acetabular Gription Sterile Latex Free [id number] - [id number] Implanted:Qty: 1 on 08/20/2024 by Travis Berrios MD at [facility] Right: Hip [employer] [id number] 03/05/2034 [id number] / / [id number] [employer] [place] 58mm 36mm Hip Neutral Liner Acetabular Altrx Sterile Latex Free [id number] - [id number] Implanted:Qty: 1 on 08/20/2024 by Travis Berrios MD at [facility] Right: Hip [employer] [id number] 04/05/2029 [id number] / / [id number] [employer] [place] 6.5mm 35mm Acetabular Cancellous Screw Bone Sterile 1217-35-500 - [id number] Implanted:Qty: 1 on 08/20/2024 by Travis Berrios MD at [facility] Right: Hip [employer] [id number] 2034 1217-35-500 / / [id number] [employer] Actis L111 Mm Collar Hip 8 High Offset Stem Femoral [id number] - [id number] Implanted:Qty: 1 on 08/20/2024 by Travis Berrios MD at [facility] Right: Hip [employer] [id number] 01/03/2034 [id number] / / [id number] [employer] Articul/Trip 36mm Cementless Hip +8.5mm 12/14 Taper Head Femoral Latex Free 1365-36-330 - [id number] Implanted:Qty: 1 on 08/20/2024 by Travis Berrios MD at [facility] Right: Hip [employer] [id number] 06/05/2029 1365-36-330 / / [id number] Procedures Procedure Name Priority Date/Time Associated Diagnosis Comments POCT GLUCOSE DEVICE Routine 08/21/2024 11:32 AM LATHE SET UP OPERATOR POCT GLUCOSE DEVICE Routine 08/21/2024 7 :48 AM LATHE SET UP OPERATOR EGFR Routine 08/21/2024 3:02 AM LATHE SET UP OPERATOR CBC WITHOUT DIFFERENTIAL Routine 08/21/2024 3:02 AM LATHE SET UP OPERATOR BASIC METABOLIC PANEL Routine 08/21/2024 3:02 AM LATHE SET UP OPERATOR POCT GLUCOSE DEVICE Routine 08/21/2024 2 :05 AM LATHE SET UP OPERATOR POCT GLUCOSE DEVICE Routine 08/20/2024 8 :26 PM LATHE SET UP OPERATOR POCT GLUCOSE DEVICE Routine 08/20/2024 6 :21 PM LATHE SET UP OPERATOR POCT GLUCOSE DEVICE Routine 08/20/2024 5 :17 PM LATHE SET UP OPERATOR SURGICAL PATHOLOGY Routine 08/20/2024 2: 38 PM LATHE SET UP OPERATOR Primary osteoarthritis of right hip XR PELVIS ORTHO VIEW IP Routine 08/20/2024 12:20 PM LATHE SET UP OPERATOR POCT GLUCOSE DEVICE Routine 08/20/2024 12:11 PM LATHE SET UP OPERATOR FL FLUOROSCOPY < 1 HOUR IP Routine 08/20/2024 11:43 AM LATHE SET UP OPERATOR XR HIP RIGHT 1 VIEW IP Routine 08/20/2024 11:43 AM LATHE SET UP OPERATOR ANESTHESIA SPINAL BLOCK Routine 08/20/2024 10:00 AM LATHE SET UP OPERATOR ARTHROPLASTY TOTAL HIP - ANTERIOR APPROACH 08/20/2024 9:18 AM LATHE SET UP OPERATOR Primary osteoarthritis of right hip Special Needs Anterior Approach, Depuy- Actis , Omnitrac, Aquamantys, 1 liter beta rinse, Pt to go home POCT GLUCOSE DEVICE Routine 08/20/2024 7 :53 AM LATHE SET UP OPERATOR PROTIME-INR STAT 08/20/2024 7:53 AM LATHE SET UP OPERATOR APTT STAT 08/20/2024 7:53 AM LATHE SET UP OPERATOR ECG 12-LEAD Routine 07/28/2024 10:27 AM LATHE SET UP OPERATOR Pre-operative exam XR CHEST PA LATERAL 2 VIEWS Schedule Routine, Read Routine (OP Routine) 07/28/2024 10:25 AM LATHE SET UP OPERATOR Pre-operative exam EGFR Routine 07/28/2024 9:53 AM LATHE SET UP OPERATOR EGFR Routine 07/28/2024 9:53 AM LATHE SET UP OPERATOR Pre-operative exam DIFFERENTIAL AUTO Routine 07/28/2024 9:5 3 AM LATHE SET UP OPERATOR Pre-operative exam LIPID PANEL Routine 07/28/2024 9:53 AM LATHE SET UP OPERATOR CBC WITHOUT DIFFERENTIAL Routine 07/28/2024 9:53 AM LATHE SET UP OPERATOR HEMOGLOBIN A1C Routine 07/28/2024 9:53 AM LATHE SET UP OPERATOR CREATININE Routine 07/28/2024 9:53 AM LATHE SET UP OPERATOR COMPREHENSIVE METABOLIC PANEL Routine 07/28/2024 9:53 AM LATHE SET UP OPERATOR HEMOGLOBIN A1C Routine 07/28/2024 9:53 AM LATHE SET UP OPERATOR Pre-operative exam COMPREHENSIVE METABOLIC PANEL Routine 07/28/2024 9:53 AM LATHE SET UP OPERATOR Pre-operative exam CBC WITH AUTO DIFFERENTIAL Routine 07/28/2024 9:53 AM LATHE SET UP OPERATOR Pre-operative exam ALBUMIN CREATININE RATIO, URINE Routine 07/28/2024 9:39 AM LATHE SET UP OPERATOR URINALYSIS AND REFLEX TO MICROSCOPIC AND CULTURE Routine 07/28/2024 9:39 AM LATHE SET UP OPERATOR Pre-operative exam from Last 3 Months Results * (ABNORMAL) POCT glucose (08/21/2024 11:32 AM LATHE SET UP OPERATOR) Glucose, POC 220(H) 70 - 199 mg/dL Blood 08/21/2024 11:3 2 AM LATHE SET UP OPERATOR 08/21/2024 11:32 AM LATHE SET UP OPERATOR us Travis Berrios MD LAB POCT ORDERABLES - DE VICE Final Result [facility] [place] [facility] [place] [address] * POCT glucose (08/21/2024 7:48 AM LATHE SET UP OPERATOR) Glucose, POC 181 70 - 199 mg/dL Blood 08/21/2024 7:48 AM LATHE SET UP OPERATOR 08/21/2024 7:48 AM LATHE SET UP OPERATOR us Travis Berrios MD LAB POCT ORDERABLES - DE VICE Final Result Performing Organization Address City/[facility]/ZIP Co de Phone Number [facility] ([place] 1 [facility] [place] [address] * eGFR (08/21/2024 3:02 AM LATHE SET UP OPERATOR) eGFR >90 >=60 mL/min/1. 73 m2 Comment: Interpretive Data Reference Interval Normal >/= 90 mL/min/1.73m2 Mildly decreased* 60 - 89 mL/min/1.73m2 Mildly to moderately decreased 45 - 59 mL/min/1.73m2 Moderately to severely decreased 30 - 44 mL/min/1.73m2 Severely decreased 15 - 29 mL/min/1.73m2 Kidney Failure < 15 mL/min/1.73m2 *Relative to young adult level Estimated glomerular filtration rate is determined by the 2020 CKD-EPI equation recommended by the National Kidney Foundation (A Unifying Approach to GFR Estimation: Recommendations of the NKF-ASK Task Force on Reassessing the Inclusion of Race in Diagnosing Kidney Disease, JASN 2020). The CKD-EPI equation should not be used for patients with unstable renal function and has not been validated in children and those over 70. Current interpretive data was last reviewed 2021. Blood 08/21/2024 3:02 AM LATHE SET UP OPERATOR 08/21/2024 4:14 AM LATHE SET UP OPERATOR us Stacia Lind NP LAB BLOOD ORDERABLES Fi nal Result [facility] [place] [address] * (ABNORMAL) CBC without differential (08/21/2024 3:02 AM LATHE SET UP OPERATOR) Pathologist [facility] WBC 12.3(H) 3.8 - 9.9 K/cumm Hgb 11.7(L) 13.0 - 17.5 g/dL [facility] ([place]) Hct 35.5(L) 38.9 - 50.3 % [facility] Plt 241 150 - 400 K/cumm [facility] MPV 9.3 9.1 - 12.3 fL [facility] RBC 4.04(L) 4.30 - 5.80 M/cumm [facility] [place] MCV 87.9 81.3 - 96.4 fL [facility] MCH 29.0 27.1 - 33.3 pg [facility] ([place] MCHC 33.0 32.3 - 35.7 g/dL [facility] ([place] RDW CV 13.0 11.1 - 14.9 % [facility] ([place] RDW SD 41.6 35.7 - 48.1 fL [facility] NRBC abs 0.00 0.00 - 0.01 K/cumm [facility] Blood 08/21/2024 3:02 AM LATHE SET UP OPERATOR 08/21/2024 4:12 AM LATHE SET UP OPERATOR Stacia Lind TROMBONE SLIDE ASSEMBLER LAB BLOOD ORDERABLES nal Result [facility] ([place] 1 [facility] Department of Laboratories [place] [id number] * (ABNORMAL) Basic metabolic panel (08/21/2024 3:02 AM LATHE SET UP OPERATOR) Sodium 137 135 - 145 mmol/L Potassium, pl 4.3 3.3 - 4.9 mmol/L [facility] ([place]) Chloride 105 97 - 110 mmol/L [facility] CO2 20(L) 22 - 32 mmol/L [facility] ([place] Anion gap 12 2 - 15 mmol/L [facility] BUN 22 6 - 25 mg/dL [facility] ([place]) Creatinine 0.81 0.80 - 1.30 mg/dL [facility] ([place] Glucose 160 70 - 199 mg/dL [facility] ([place] Comment: Interpretive Data Fasting glucose >/= 126 mg/dl is diagnostic for diabetes. Fasting is defined as no caloric intake for at least 8 hours. Fasting glucose between 100 mg/dl to 125 mg/dl is diagnostic of prediabetes. In a patient with classic symptoms of hyperglycemia or hyperglycemic crisis, a random glucose >/= 200 mg/dl is diagnostic for diabetes. In the absence of unequivocal hyperglycemia, results should be confirmed by repeat testing. The classification and Diagnosis of Diabetes Diabetes Care 2021; 46: S19-S40. Current interpretive data was last revised 2022. Calcium 8.9 8.5 - 10.3 mg/dL [facility] Blood 08/21/2024 3:02 AM LATHE SET UP OPERATOR 08/21/2024 4:14 AM LATHE SET UP OPERATOR Stacia Lind TROMBONE SLIDE ASSEMBLER LAB BLOOD ORDERABLES Fi nal Result [facility] 1 [facility] [employer] [place] [address] * POCT glucose (08/21/2024 2:05 AM LATHE SET UP OPERATOR) Glucose, POC 156 70 - 199 mg/dL Blood 08/21/2024 2:05 AM LATHE SET UP OPERATOR 08/21/2024 2:05 AM LATHE SET UP OPERATOR Travis Berrios MD LAB POCT ORDERABLES - DE VICE Final Result Performing Organization Address [facility]/ZIP Co de Phone Number [facility] 1 [facility] [employer] [place] [address] * (ABNORMAL) POCT glucose (08/20/2024 8:26 PM LATHE SET UP OPERATOR) Glucose, POC 265(H) 70 - 199 mg/dL Blood 08/20/2024 8:26 PM LATHE SET UP OPERATOR 08/20/2024 8:26 PM LATHE SET UP OPERATOR Travis Berrios MD LAB POCT ORDERABLES - DE VICE Final Result Performing Organization Address City/[facility]/ZIP Co de Phone Number [facility] 1 [facility] [employer] [place] [address] * (ABNORMAL) POCT glucose (08/20/2024 6:21 PM LATHE SET UP OPERATOR) Glucose, POC 234(H) 70 - 199 mg/dL Blood 08/20/2024 6:21 PM LATHE SET UP OPERATOR 08/20/2024 6:21 PM LATHE SET UP OPERATOR Travis Berrios MD LAB POCT ORDERABLES - DE VICE Final Result Performing Organization Address [facility] Co de Phone Number [facility] [address] [place] [address] [place] [address] * (ABNORMAL) POCT glucose (08/20/2024 5:17 PM LATHE SET UP OPERATOR) Glucose, POC 392(H) 70 - 199 mg/dL Blood 08/20/2024 5:17 PM LATHE SET UP OPERATOR 08/20/2024 5:17 PM LATHE SET UP OPERATOR Travis Berrios MD LAB POCT ORDERABLES - DE VICE Final Result Performing Organization Address [facility] Phone Number [facility] [address] [place] [address] [place] [address] * Surgical pathology (08/20/2024 2:38 PM LATHE SET UP OPERATOR) Tissue (Bone Fragment(s),) 08/20/2024 11:36 AM LATHE SET UP OPERATOR Narrative PATHOLOGY [facility] ([place] - 08/22/2024 4:04 PM LATHE SET UP OPERATOR EPIC results best viewed via link to PDF [facility] Department of Pathology [address] [place] [id number] Note to Patients: This report may contain a detailed description of human tissue sent by a health care provider to the laboratory for pathologic evaluation. The content of this report is essential for diagnosis and may provide important critical findings. This information may be unfamiliar to patients to review without a medical professional present. It is advised that the patient review this report in the presence of a health care provider who can answer questions and explain the details. Final Report Patient Name: OSMANY GIBBS. Address: [address] [place] [id number] Gender: M : 1960 (Age: 64) Service: Surgery Location: [facility] Hospital #: [id number] Patient Type: [facility] EP OP in bed Taken: 08/20/2024 Received: 08/20/2024 Accessioned: 08/20/2024 Reported: 08/22/2024 Physician(s):Dr. Travis Berrios M.D. Diagnosis: Bone, right total hip arthroplasty - anterior approach: - Histologic changes consistent with degenerative joint disease. Sumit Farmer MD Report Electronically Reviewed and Signed Out By Sumit Farmer MD 08/22/2024 16:04:16 Specimen(s) Received: A: Right hip bone and tissue fragments Microscopic Description: A decalcified section shows erosion and destruction of the articular cartilage. The marrow space is largely fatty with focal hematopoietic marrow elements and two small interstitial lymphoid aggregates. The electronic medical record is reviewed. From review of the patient's most recent preoperative CBC (dated 07/28/24) it is noted that the white blood cell count was within normal limits at 5.4 K/mm3. In concert with the morphology, this supports a benign process. There is no evidence of malignancy. The histologic changes are consistent with the clinical impression of degenerative joint disease. Clinical History: Osteoarthritis of right hip. Right total hip arthroplasty - anterior approach. Gross Description: The specimen is received in a single container labeled [facility] and right [facility] . It is a 5.3 cm in diameter femoral head and separate 15 cc aggregate of almeida gritty hemorrhagic cortical and cancellous bone. The articular surface of the femoral head shows degenerative changes of the cartilage with erosion and eburnation. The femoral neck margin is smooth. The specimen is bisected revealing no subchondral gross lesions. Leather Grainer sections are submitted in one cassette after decalcification. Felipe Kellogg R.N., P.A./Naida Starr M.D. REPORT IMAGES AND SCANNED DOCUMENTS, IF INCLUDED, ONLY VIEWABLE IN PDF VERSION OF REPORT The performance characteristics of some immunohistochemical stains, fluorescence in-situ hybridization tests and immunophenotyping by flow cytometry cited in this report (if any) were determined by the Surgical Pathology Department at [facility] as part of an ongoing quality improvement specialist program and in compliance with federally mandated regulations drawn from the Clinical Laboratory Improvement Act of 1988 (CLIA '88). Some of these tests rely on the use of analyte specific reagents and are subject to specific labeling requirements by the US Food and Drug Administration. Such diagnostic tests may only be performed in a facility that is certified by the Department of Health and Human Services as a high complexity laboratory under CLIA '88. The FDA has determined that such clearance or approval is not necessary. This test is used for clinical purposes. It should not be regarded as investigational or for research. Nevertheless, federal rules concerning the medical use of analyte specific reagents require that the following disclaimer be attached to the report: This test was developed and its performance characteristics determined by the Surgical Pathology Department [facility]. It has not been cleared or approved by the U. S. Food and Drug Administration. Note for decalcified specimens: This assay has not been validated on decalcified tissues. Results should be interpreted with caution given the possibility of false negativity on decalcified specimens Travis Berrios MD LAB PATHOLOGY ORDERABLES Final Result PATHOLOGY [facility] ([address] [address] * XR Pelvis Ortho View (08/20/2024 12:20 PM LATHE SET UP OPERATOR) Anatomical Region Laterality Modality Body, Pelvis N/A Computed Radiogr aphy 08/20/2024 1:58 PM LATHE SET UP OPERATOR Narrative 08/20/2024 1:59 PM LATHE SET UP OPERATOR EXAM DESCRIPTION: XR PELVIS ORTHO VIEW REASON FOR STUDY: in PACU s/p right total hip arthroplasty Post op right hip replacement TECHNIQUE: Frontal view of the pelvis. COMPARISON: 04/14/2024. FINDINGS: Postsurgical change right hip arthroplasty with components in expected alignment and position. No evidence of complication. Obturator ring is intact. Sacroiliac joints pubic symphysis maintained. Pelvic phleboliths noted. No aggressive osseous lesion. Foci of gas present in the right thigh soft tissues. IMPRESSION: Postsurgical change right hip arthroplasty with no evidence of complication. THIS IS AN ELECTRONICALLY VERIFIED FINAL REPORT 08/20/2024 1:59 PM - Electronically signed by Esequiel Rosario M.D. CH: Report ID: [id number] Reading Location: [id number] Procedure Note Esequiel Rosario Jr., MD - 08/20/2024 EXAM DESCRIPTION: XR PELVIS ORTHO VIEW REASON FOR STUDY: in PACU s/p right total hip arthroplasty Post op right hip replacement TECHNIQUE: Frontal view of the pelvis. COMPARISON: 04/14/2024. FINDINGS: Postsurgical change right hip arthroplasty with components in expected alignment and position. No evidence of complication. Obturator ring is intact. Sacroiliac joints pubic symphysis maintained. Pelvic phleboliths noted. No aggressive osseous lesion. Foci of gas present in the rightthigh soft tissues. IMPRESSION: Postsurgical change right hip arthroplasty with no evidence ofcomplication. THIS IS AN ELECTRONICALLY VERIFIED FINAL REPORT 08/20/2024 1:59 PM - Electronically signed by Esequiel Rosario M.D. CH: Report ID: [id number] Reading Location: [id number] us Stacia Lind TROMBONE SLIDE ASSEMBLER IMG XR PROCEDURES Final Result * POCT glucose (08/20/2024 12:11 PM LATHE SET UP OPERATOR) Glucose, POC 165 70 - 199 mg/dL Blood 08/20/2024 12:1 1 PM LATHE SET UP OPERATOR 08/20/2024 12:11 PM LATHE SET UP OPERATOR us Travis Berrios MD LAB POCT ORDERABLES - DE VICE Final Result [facility] ([place] 1 [facility] [place] [address] * FL Fluoroscopy < 1 Hour (08/20/2024 11:43 AM LATHE SET UP OPERATOR) Narrative RAD_PACS_LOW - 08/20/2024 11:45 AM LATHE SET UP OPERATOR The images from this study are not interpreted by Radiology. Please refer to the physician's procedure / OR operative note. us Travis Berrios MD IMG FLUOROSCOPY PROCEDUR ES Final Result RAD_PACS_[facility] * XR Hip Right 1 View (08/20/2024 11:43 AM LATHE SET UP OPERATOR) Anatomical Region Laterality Modality Lower Extremities, Hip, Pelvis Right R adio Fluoroscopy 08/20/2024 11:5 5 AM LATHE SET UP OPERATOR Narrative 08/20/2024 11:56 AM LATHE SET UP OPERATOR EXAM DESCRIPTION: XR HIP RIGHT 1 VIEW REASON FOR STUDY: osteoarthritis 10.3 sec fluoro 1.02 mGy FINDINGS: Multiple fluoroscopic images consisting of a single view(s) submitted with comparison 04/14/2024 . Dose area product equals 0.24787 mGym*2. Fluoroscopic images demonstrate an in progress right total hip arthroplasty placement . Soft tissue gas is present. IMPRESSION: In progress right total hip arthroplasty placement. THIS IS AN ELECTRONICALLY VERIFIED FINAL REPORT 08/20/2024 11:56 AM - Electronically signed by Esequiel Merritt M.D. MF: [email or web address] Report ID: [id number] Reading Location: [id number] Procedure Note Esequiel Merritt MD - 08/20/2024 EXAM DESCRIPTION: XR HIP RIGHT 1 VIEW REASON FOR STUDY: osteoarthritis 10.3 sec fluoro 1.02 mGy FINDINGS: Multiple fluoroscopic images consisting of a single view(s) submittedwith comparison 04/14/2024 . Dose area product equals 0.44925 mGym*2. Fluoroscopic images demonstrate an in progress right total hiparthroplasty placement . Soft tissue gas is present. IMPRESSION: In progress right total hip arthroplasty placement. THIS IS AN ELECTRONICALLY VERIFIED FINAL REPORT 08/20/2024 11:56 AM - Electronically signed by Esequiel Merritt M.D. MF: [email or web address] Report ID: [id number] Reading Location: [id number] us Travis Berrios MD IMG XR PROCEDURES Final Result * Spinal Block (08/20/2024 10:00 AM LATHE SET UP OPERATOR) Narrative Agustin Vallecillo CRNA - 08/20/2024 10:00 AM LATHE SET UP OPERATOR Agustin Vallecillo CRNA 08/20/2024 10:00 AM Spinal Block Patient location: OR Reason for block: primary anesthetic Staff: Placed by: METAL CASKET ASSEMBLER:Agustin Vallecillo CRNA Procedure prep: Preprocedure checklist: patient identified, procedure contraindications assessed, site marked, procedure consent, surgical consent, IV checked, risks, benefits and alternatives discussed, monitors and equipment checked and timeout performed Patient position: sitting Procedure performed while patient: sedate with meaningful contact Monitoring: oximetry and blood pressure Prep solution: chlorhexadine/alcohol PPE: provider hat/mask, sterile gloves and sterile drape Skin infiltrated with lidocaine 1%: yes Spinal: Approach: midline Introducer used: yes Location: L3-4 Spinal injection: CSF demonstrated, no aspiration of heme and no paresthesias noted Number of attempts: 1 Spinal Needle: Needle type: Will Needle gauge: 24 G Needle length: 9 cm Assessment: Sensory deficit - left: full eval pending Sensory deficit - right: full eval pending Events: patient tolerated procedure well with no complications us Angelina Malone MD ANESTHESIA ORDERABLES Fi nal Result * POCT glucose (08/20/2024 7:53 AM LATHE SET UP OPERATOR) Glucose, POC 163 70 - 199 mg/dL Blood 08/20/2024 7:53 AM LATHE SET UP OPERATOR 08/20/2024 7:53 AM LATHE SET UP OPERATOR us Travis Berrios MD LAB POCT ORDERABLES - DE VICE Final Result [facility] ([place]) 1 [facility] of Laboratories [place], [place] [id number] * (ABNORMAL) aPTT (08/20/2024 7:53 AM LATHE SET UP OPERATOR) aPTT 39(H) 28 - 38 sec [facility] ([place]) Comment: Interpretive Data Heparin therapeutic range: 66.0 - 100.0 seconds. Range based on correlation with therapeutic heparin activity range of 0.3 - 0.7 Units/mL. Current interpretive data was last revised on 2023. Blood 08/20/2024 7:53 AM LATHE SET UP OPERATOR 08/20/2024 8:03 AM LATHE SET UP OPERATOR Travis Berrios MD LAB BLOOD ORDERABLES Fin al Result Performing Organization Address City/[facility] Co de Phone Number [facility] [place] 1 [facility] [employer] [place] [address] * Protime-INR (08/20/2024 7:53 AM LATHE SET UP OPERATOR) PT 10.3 9.7 - 13.0 sec [facility] [place]) INR 0.95 0.90 - 1.20 [facility] [place]) Comment: Interpretive data Oral anticoagulant therapeutic ranges: Venous thromboembolism prophylaxis or treatment: 2.0-3.0 CARDIOLOGY Standard range: 2.0-3.0 High-intensity range: 2.5-3.5 Refer to indication-specific guidelines for appropriate target ranges for prosthetic heart valve replacement. Current interpretive data was last revised on 2019. Blood 08/20/2024 7:53 AM LATHE SET UP OPERATOR 08/20/2024 8:03 AM LATHE SET UP OPERATOR Travis Berrios MD LAB BLOOD ORDERABLES Fin al Result Performing Organization Address City/[facility] Co de Phone Number [facility] [place] 1 [facility] [employer] [place] [address] * ECG 12 lead (07/28/2024 10:27 AM LATHE SET UP OPERATOR) 07/28/2024 10:1 9 AM LATHE SET UP OPERATOR Narrative [facility] - 07/29/2024 7:00 AM LATHE SET UP OPERATOR Vent Rate: 94 bpm RR Interval: 632 msec [place] Interval: 160 msec QRS Duration: 81 msec QT Interval: 325 msec QTC Interval: 377 msec P-R-T [place]: 53 - -15 - 51 degrees IMPRESSION: SINUS RHYTHM NONSPECIFIC T-WAVE ABNORMALITY BORDERLINE ECG Electronically Signed By: Juan Hi MD us Travis Berrios MD ECG ORDERABLES Final Re sult [facility] * XR Chest Pa Lateral 2 Views (07/28/2024 10:25 AM LATHE SET UP OPERATOR) Anatomical Region Laterality Modality Body, Chest N/A Computed Radiogr aphy 08/02/2024 11:1 2 AM LATHE SET UP OPERATOR Narrative 08/02/2024 11:13 AM LATHE SET UP OPERATOR EXAM DESCRIPTION: XR CHEST PA LATERAL 2 VIEWS REASON FOR STUDY: Pre-operative Exam Pre op for right hip surgery HTN Asthma Sleep apnea TECHNIQUE: There are 2 radiographic view(s) of the chest. COMPARISON: No prior. FINDINGS: LUNGS: Pulmonary vascularity appears normal. No confluent infiltrate or effusion. Hyperinflation of lungs. HEART/MEDIASTINUM: Cardiac silhouette normal in size. Mediastinal and hilar contours appear normal. LINES/TUBES: None. BONES: Mild spondylosis thoracic spine. IMPRESSION: Hyperinflation of the lungs with no acute infiltrate. THIS IS AN ELECTRONICALLY VERIFIED FINAL REPORT 08/02/2024 11:13 AM - Electronically signed by Esequiel Enciso M.D. MJ: [email or web address] Report ID: [id number] Reading Location: [id number] Procedure Note Esequiel Enciso MD - 08/02/2024 EXAM DESCRIPTION: XR CHEST PA LATERAL 2 VIEWS REASON FOR STUDY: Pre-operative Exam Pre op for right hip surgery HTN Asthma Sleep apnea TECHNIQUE: There are 2 radiographic view(s) of the chest. COMPARISON: No prior. FINDINGS: LUNGS: Pulmonary vascularity appears normal. No confluent infiltrate or effusion. Hyperinflation of lungs. HEART/MEDIASTINUM: Cardiac silhouette normal in size. Mediastinal andhilar contours appear normal. LINES/TUBES: None. BONES: Mild spondylosis thoracic spine. IMPRESSION: Hyperinflation of the lungs with no acute infiltrate. THIS IS AN ELECTRONICALLY VERIFIED FINAL REPORT 08/02/2024 11:13 AM - Electronically signed by Esequiel Enciso M.D. MJ: [email or web address] Report ID: [id number] Reading Location: [place] [id number] us Travis Berrios MD IMG XR PROCEDURES Final Result * eGFR (07/28/2024 9:53 AM LATHE SET UP OPERATOR) eGFR 90 >=60 mL/min/1. 73 m2 Comment: Interpretive Data Reference Interval Normal >/= 90 mL/min/1.73m2 Mildly decreased* 60 - 89 mL/min/1.73m2 Mildly to moderately decreased 45 - 59 mL/min/1.73m2 Moderately to severely decreased 30 - 44 mL/min/1.73m2 Severely decreased 15 - 29 mL/min/1.73m2 Kidney Failure < 15 mL/min/1.73m2 *Relative to young adult level Estimated glomerular filtration rate is determined by the 2020 CKD-EPI equation recommended by the National Kidney Foundation (A Unifying Approach to GFR Estimation: Recommendations of the NKF-ASK Task Force on Reassessing the Inclusion of Race in Diagnosing Kidney Disease, JASN 2020). The CKD-EPI equation should not be used for patients with unstable renal function and has not been validated in children and those over 70. Current interpretive data was last reviewed 2021. Blood 07/28/2024 9:53 AM LATHE SET UP OPERATOR 07/28/2024 10:18 AM LATHE SET UP OPERATOR us Yulisa Greene NP LAB BLOOD ORDERABLES Final Res ult [facility] ([place] [facility] [place] [address] * eGFR (07/28/2024 9:53 AM LATHE SET UP OPERATOR) eGFR >90 >=60 mL/min/1. 73 m2 Comment: Interpretive Data Reference Interval Normal >/= 90 mL/min/1.73m2 Mildly decreased* 60 - 89 mL/min/1.73m2 Mildly to moderately decreased 45 - 59 mL/min/1.73m2 Moderately to severely decreased 30 - 44 mL/min/1.73m2 Severely decreased 15 - 29 mL/min/1.73m2 Kidney Failure < 15 mL/min/1.73m2 *Relative to young adult level Estimated glomerular filtration rate is determined by the 2020 CKD-EPI equation recommended by the National Kidney Foundation (A Unifying Approach to GFR Estimation: Recommendations of the NKF-ASK Task Force on Reassessing the Inclusion of Race in Diagnosing Kidney Disease, JASN 2020). The CKD-EPI equation should not be used for patients with unstable renal function and has not been validated in children and those over 70. Current interpretive data was last reviewed 2021. Blood 07/28/2024 9:53 AM LATHE SET UP OPERATOR 07/28/2024 10:18 AM LATHE SET UP OPERATOR us Travis Berrios MD LAB BLOOD ORDERABLES Fin al Result [facility] ([place] 1 [facility] [place] [address] * Differential, auto (07/28/2024 9:53 AM LATHE SET UP OPERATOR) Neutrophil abs 3.4 1.5 - 6.5 K/cumm Imm gran abs 0.0 0.0 - 0.1 K/cumm [facility] ([place]) Lymphocyte abs 1.2 0.8 - 3.3 K/cumm [facility] ([place]) Monocyte abs 0.6 0.2 - 0.8 K/cumm [facility] ([place]) Eosinophil abs 0.1 0.0 - 0.5 K/cumm [facility] ([place]) Basophil abs 0.0 0.0 - 0.1 K/cumm [facility] ([place]) Neutrophil pct 63.4 % [facility] ([place]) Comment: Interpretive Data Percent cell count reference ranges are not reported, since discordance with absolute values may lead to misinterpretation of CBC data. Current Interpretive Data was last revised on 2017. Imm gran pct 0.4 % [facility] ([place]) Comment: Interpretive Data Percent cell count reference ranges are not reported, since discordance with absolute values may lead to misinterpretation of CBC data. Current Interpretive Data was last revised on 2017. Lymphocyte pct 21.9 % [facility] ([place]) Comment: Interpretive Data Percent cell count reference ranges are not reported, since discordance with absolute values may lead to misinterpretation of CBC data. Current Interpretive Data was last revised on 2017. Monocyte pct 11.0 % [facility] ([place]) Comment: Interpretive Data Percent cell count reference ranges are not reported, since discordance with absolute values may lead to misinterpretation of CBC data. Current Interpretive Data was last revised on 2017. Eosinophil pct 2.6 % [facility] ([place]) Comment: Interpretive Data Percent cell count reference ranges are not reported, since discordance with absolute values may lead to misinterpretation of CBC data. Current Interpretive Data was last revised on 2017. Basophil pct 0.7 % [facility] ([place]) Comment: Interpretive Data Percent cell count reference ranges are not reported, since discordance with absolute values may lead to misinterpretation of CBC data. Current Interpretive Data was last revised on 2017. Blood 07/28/2024 9:53 AM LATHE SET UP OPERATOR 07/28/2024 10:18 AM LATHE SET UP OPERATOR us Travis Berrios MD LAB BLOOD ORDERABLES Fin al Result [facility] ([place] 1 [facility] [place] [address] * (ABNORMAL) CBC with auto differential (07/28/2024 9:53 AM LATHE SET UP OPERATOR) WBC 5.4 3.8 - 9.9 K/cumm Hgb 14.0 13.0 - 17.5 g/dL [facility] ([place]) Hct 42.7 38.9 - 50.3 % [facility] ([place]) Plt 252 150 - 400 K/cumm [facility] ([place]) MPV 9.0(L) 9.1 - 12.3 fL [facility] ([place]) RBC 4.84 4.30 - 5.80 M/cumm [facility] ([place]) MCV 88.2 81.3 - 96.4 fL [facility] ([place]) MCH 28.9 27.1 - 33.3 pg [facility] ([place]) MCHC 32.8 32.3 - 35.7 g/dL [facility] ([place]) RDW CV 13.0 11.1 - 14.9 % [facility] ([place]) RDW SD 42.1 35.7 - 48.1 fL [facility] ([place]) NRBC abs 0.00 0.00 - 0.01 K/cumm [facility] ([place]) Blood 07/28/2024 9:53 AM LATHE SET UP OPERATOR 07/28/2024 10:18 AM LATHE SET UP OPERATOR us Travis Berrios MD LAB BLOOD ORDERABLES Fin al Result [facility] ([place] 1 [facility] [place] [address] * (ABNORMAL) CBC without differential (07/28/2024 9:53 AM LATHE SET UP OPERATOR) WBC 5.5 3.8 - 9.9 K/cumm Hgb 14.0 13.0 - 17.5 g/dL [facility] ([place]) Hct 42.6 38.9 - 50.3 % [facility] [place]) Plt 230 150 - 400 K/cumm [facility] ([place]) MPV 8.9(L) 9.1 - 12.3 fL [facility] ([place]) RBC 4.84 4.30 - 5.80 M/cumm [facility] ([place]) MCV 88.0 81.3 - 96.4 fL [facility] ([place]) MCH 28.9 27.1 - 33.3 pg [facility] ([place]) MCHC 32.9 32.3 - 35.7 g/dL [facility] ([place]) RDW CV 13.0 11.1 - 14.9 % [facility] ([place]) RDW SD 41.9 35.7 - 48.1 fL [facility] ([place]) NRBC abs 0.00 0.00 - 0.01 K/cumm [facility] Blood 07/28/2024 9:53 AM LATHE SET UP OPERATOR 07/28/2024 10:18 AM LATHE SET UP OPERATOR Yulisa Greene NP LAB BLOOD ORDERABLES Final Res ult Performing Organization Address [facility] de Phone Number [facility] [place] [address] [place] [address] * (ABNORMAL) Hemoglobin A1c (07/28/2024 9:53 AM LATHE SET UP OPERATOR) Hgb A1C 5.9(H) 4.0 - 5.6 % Estimated Average Glucose 123 mg/dL [facility] ([place]) Comment: The ADA recommends reporting an estimated Average Glucose (eAG) with all Hemoglobin A1c results using the equation derived from a study of 507 normal and diabetic adults. Minority populations were underrepresented and children were not included. (Diabetes Care 31:7785-8095, 2008). The eAG is not equivalent to a fasting glucose. Blood 07/28/2024 9:53 AM LATHE SET UP OPERATOR 07/28/2024 10:18 AM LATHE SET UP OPERATOR Yulisa Jc MEIER LAB BLOOD ORDERABLES Final Res ult Performing Organization Address [facility] de Phone Number [facility] [address] [place] [address] * (ABNORMAL) Hemoglobin A1c (07/28/2024 9:53 AM LATHE SET UP OPERATOR) Hgb A1C 5.9(H) 4.0 - 5.6 % Estimated Average Glucose 123 mg/dL [facility] ([place]) Comment: The ADA recommends reporting an estimated Average Glucose (eAG) with all Hemoglobin A1c results using the equation derived from a study of 507 normal and diabetic adults. Minority populations were underrepresented and children were not included. (Diabetes Care 31:0079-1692, 2008). The eAG is not equivalent to a fasting glucose. Blood 07/28/2024 9:53 AM LATHE SET UP OPERATOR 07/28/2024 10:18 AM LATHE SET UP OPERATOR us Travis Berrios MD LAB BLOOD ORDERABLES Fin al Result [facility] ([place] 1 [facility] [place] [address] * Creatinine (07/28/2024 9:53 AM LATHE SET UP OPERATOR) Creatinine 0.94 0.80 - 1.30 mg/dL Blood 07/28/2024 9:53 AM LATHE SET UP OPERATOR 07/28/2024 10:18 AM LATHE SET UP OPERATOR us Yulisa Greene NP LAB BLOOD ORDERABLES Final Res ult Performing Organization Address [facility] Co de Phone Number [facility] ([place] 1 [facility] [place] [address] * Lipid panel (07/28/2024 9:53 AM LATHE SET UP OPERATOR) Cholesterol 103 30 - 199 mg/dL Comment: Interpretive Data Ages < or = 19 years Acceptable: <170 mg/dL Borderline high: 170-199 mg/dL High: >or= 200 mg/dL Ages > or = 20 years Desirable: <200 mg/dL Borderline high: 200-239 mg/dL High: >or= 240 mg/dL Literature References: 1. Expert Panel on Integrated Guidelines for Cardiovascular Health and Risk Reduction in Children and Adolescents. Pediatrics 2011;128:S213 2. NCEP Expert Panel. Circulation 2004;110:227 Current Interpretive Data was last revised on 2018. Triglycerides 53 <=149 mg/dL [facility] [place]) Comment: Interpretive Data Ages < or = 9 years Acceptable: <75 mg/dL Borderline high: 75-99 mg/dL High: >or= 100 mg/dL Ages 10 to 20 years Acceptable: <90 mg/dL Borderline high: 90-129 mg/dL High: >or= 130 mg/dL Ages > or = 20 years Desirable: <150 mg/dL Borderline high: 150-199 mg/dL High: 200-499 mg/dL Very high: >or= 499 mg/dL Literature References: 1. Expert Panel on Integrated Guidelines for Cardiovascular Health and Risk Reduction in Children and Adolescents. Pediatrics 2011;128:S213 2. NCEP Expert Panel. Circulation 2004;110:227 Current Interpretive Data was last revised on 2018. HDL 43 >=40 mg/dL [facility] [place] ([place]) Comment: Interpretive Data Ages < or = 19 years Acceptable: >45 mg/dL Borderline low: 40-45 mg/dL Low: <40 mg/dL Ages > or = 20 years Desirable: >or= 60 mg/dL Low: <40 mg/dL Literature References: 1. Expert Panel on Integrated Guidelines for Cardiovascular Health and Risk Reduction in Children and Adolescents. Pediatrics 2011;128:S213 2. NCEP Expert Panel. Circulation 2004;110:227 Current Interpretive Data was last revised on 2018. LDL, calculated 47 <=129 mg/dL [facility] ([place]) Comment: Interpretive Data Ages < or = 19 years Acceptable: <110 mg/dL Borderline high: 110-129 mg/dL High: >or= 130 mg/dL Ages > or = 20 years Optimal: <100 mg/dL Near optimal: 100-129 mg/dL Borderline high: 130-159 mg/dL High: >160 mg/dL Calculated using the Harvey LDL-C estimating equation. This equation was implemented on 2024. Prior to this date LDL-C was estimated using the Friedewald equation. Literature References: 1. Expert Panel on Integrated Guidelines for Cardiovascular Health and Risk Reduction in Children and Adolescents. Pediatrics 2011;128:S213 2. NCEP Expert Panel. Circulation 2004;110:227 3. Harvey Hammer et al. MOHINI Cardiol. 2020 December 04;5(5):540-548. doi: 10.1001/jamacardio.2020.0013 Current Interpretive Data was last revised on 2024. Non-HDL Cholesterol 60 mg/dL [facility] ([place]) Comment: Interpretive Data Ages < or = 19 years Acceptable: <120 mg/dL Borderline high: 120-144 mg/dL High: >145 mg/dL Ages > or = 20 years When triglycerides are >200 mg/dL, Non-HDL cholesterol is a secondary target of therapy with treatment goals that are 30 mg/dL greater than the LDL cholesterol target. Literature References: 1. Expert Panel on Integrated Guidelines for Cardiovascular Health and Risk Reduction in Children and Adolescents. Pediatrics 2011;128:S213 2. NCEP Expert Panel. Circulation 2004;110:227 Current Interpretive Data was last revised on 2018. Chol/HDL ratio 2 [facility] ([place]) Blood 07/28/2024 9:53 AM LATHE SET UP OPERATOR 07/28/2024 10:18 AM LATHE SET UP OPERATOR us Yulisa Greene NP LAB BLOOD ORDERABLES Final Res ult [facility] ([place]) 1 [facility] [place] [address] * (ABNORMAL) Comprehensive metabolic panel (07/28/2024 9:53 AM LATHE SET UP OPERATOR) Sodium 138 135 - 145 mmol/L Potassium, pl 4.5 3.3 - 4.9 mmol/L [facility] ([place]) Chloride 104 97 - 110 mmol/L [facility] ([place]) CO2 20(L) 22 - 32 mmol/L [facility] [place]) Anion gap 14 2 - 15 mmol/L [facility] ([place]) BUN 18 6 - 25 mg/dL [facility] ([place]) Creatinine 0.94 0.80 - 1.30 mg/dL [facility] ([place]) Glucose 109 70 - 199 mg/dL [facility] ([place]) Comment: Interpretive Data Fasting glucose >/= 126 mg/dl is diagnostic for diabetes. Fasting is defined as no caloric intake for at least 8 hours. Fasting glucose between 100 mg/dl to 125 mg/dl is diagnostic of prediabetes. In a patient with classic symptoms of hyperglycemia or hyperglycemic crisis, a random glucose >/= 200 mg/dl is diagnostic for diabetes. In the absence of unequivocal hyperglycemia, results should be confirmed by repeat testing. The classification and Diagnosis of Diabetes Diabetes Care 2021; 46: S19-S40. Current interpretive data was last revised 2022. Calcium 9.6 8.5 - 10.3 mg/dL [facility] ([place]) Bilirubin, total 0.7 0.1 - 1.2 mg/dL [facility] ([place]) Protein, pl 7.9 6.5 - 8.5 g/dL [facility] ([place]) Albumin 4.2 3.5 - 5.0 g/dL [facility] ([place]) Alk phos 63 40 - 130 Units/L [facility] ([place]) ALT 17 7 - 55 Units/L [facility] ([place]) AST 15 10 - 50 Units/L [facility] ([place]) Blood 07/28/2024 9:53 AM LATHE SET UP OPERATOR 07/28/2024 10:18 AM LATHE SET UP OPERATOR us Yulisa Greene NP LAB BLOOD ORDERABLES Final Res ult [facility] ([place]) 1 [facility] [place] [address] * (ABNORMAL) Comprehensive metabolic panel (07/28/2024 9:53 AM LATHE SET UP OPERATOR) Sodium 135 135 - 145 mmol/L Potassium, pl 4.4 3.3 - 4.9 mmol/L [facility] ([place]) Chloride 101 97 - 110 mmol/L [facility] ([place]) CO2 21(L) 22 - 32 mmol/L [facility] ([place]) Anion gap 13 2 - 15 mmol/L [facility] ([place]) BUN 19 6 - 25 mg/dL [facility] ([place]) Creatinine 0.92 0.80 - 1.30 mg/dL [facility] ([place]) Glucose 112 70 - 199 mg/dL [facility] ([place]) Comment: Interpretive Data Fasting glucose >/= 126 mg/dl is diagnostic for diabetes. Fasting is defined as no caloric intake for at least 8 hours. Fasting glucose between 100 mg/dl to 125 mg/dl is diagnostic of prediabetes. In a patient with classic symptoms of hyperglycemia or hyperglycemic crisis, a random glucose >/= 200 mg/dl is diagnostic for diabetes. In the absence of unequivocal hyperglycemia, results should be confirmed by repeat testing. The classification and Diagnosis of Diabetes Diabetes Care 2021; 46: S19-S40. Current interpretive data was last revised 2022. Calcium 9.6 8.5 - 10.3 mg/dL [facility] ([place]) Bilirubin, total 0.6 0.1 - 1.2 mg/dL [facility] ([place]) Protein, pl 7.7 6.5 - 8.5 g/dL [facility] ([place]) Albumin 4.1 3.5 - 5.0 g/dL [facility] ([place]) Alk phos 62 40 - 130 Units/L [facility] ([place]) ALT 19 7 - 55 Units/L [facility] [place] AST 14 10 - 50 Units/L [facility] ([place]) Blood 07/28/2024 9:53 AM LATHE SET UP OPERATOR 07/28/2024 10:18 AM LATHE SET UP OPERATOR us Travis Berrios MD LAB BLOOD ORDERABLES Fin al Result [facility] [address] [facility] [place] [address] * (ABNORMAL) Urinalysis reflex to microscopic and culture Urine (07/28/2024 9:39 AM LATHE SET UP OPERATOR) Color, ur Yellow Yellow Clarity, ur Clear Clear [facility] ([place]) Specific gravity, ur 1.030 1.003 - 1.030 [facility] ([place]) pH, urine 5.5 [facility] ([place]) Comment: Interpretive Data U rine pH is affected by diet, medications, systemic acid-base disturbances, and renal tubular function. pH may affect urinary stone formation. For example, urine pH below 6.0 may help reduce the tendency for calcium phosphate stones and pH greater than 6.0 may reduce the tendency for uric acid stone formation. Source: [facility] [employer] Current Interpretive Data was last revised on 2017 Protein, ur ql Trace Negative [facility] ([place]) Glucose, ur ql Negative Negative [facility] ([place]) Ketones, ur 1+(A) Negative [facility] ([place]) Bilirubin, ur Negative Negative [facility] ([place]) Blood, ur Negative Negative [facility] ([place]) Urobilinogen, ur 2.0(A) <2.0 mg/dL [facility] ([place]) Nitrite, ur Negative Negative [facility] ([place]) Leukocyte esterase, ur Negative Negative [facility] ([place]) UA reflex comment Reflex conditions for microscopic UA and culture not met. [facility] ([place]) Urine 07/28/2024 9:39 AM LATHE SET UP OPERATOR 07/28/2024 10:20 AM LATHE SET UP OPERATOR us Travis Berrios MD LAB MICROBIOLOGY - GENER AL ORDERABLES Final Result [facility] ([place]) 1 [facility] [employer] [place] [address] * Albumin Creatinine Ratio, Urine (07/28/2024 9:39 AM LATHE SET UP OPERATOR) Albumin Ur 27.2 mg/L Comment: Interpretive Data No reference range established. Current interpretive data was last revised 2018. Testing performed by: [facility], [address] [place] [address]., [id number] Creatinine Ur 276.6 mg/dL LANCE KELSEY (KAMI) Comment: Interpretive Data No reference range established. Current interpretive data was last revised 2018. Testing performed by: [facility], [address] [place] [address]., [id number] Albumin Creatinine Ratio, Ur 10 1 - 29 mg/g LANCE KELSEY (KAMI) Comment:Testing performed by : [facility], [address] [place] [address]., [id number] Urine 07/28/2024 9:39 AM LATHE SET UP OPERATOR 07/28/2024 1:31 PM LATHE SET UP OPERATOR us Yulisa Greene NP LAB URINE ORDERABLES Final Res ult LANCE KELSEY (KAMI) [address] [facility] [address] [place] [address] from Last 3 Months Insurance [facility] CHO[facility] PLUS [facility] CHOICE PLUS MEDICARE Advance Directives For more information, please contact: [phone] * Full Code (Latest Code Status on File) Date Activated Date Inactivated Comments 08/20/2024 1:14 PM 08/21/2024 6:44 PM Care Teams Animal Shelter Clerk Relationship Specialty Start Date End Date Aramis Cruz MD PCP - General Family Practice 03/31/24 Travis Berrios MD [address] [place] [address] [place] [address] Surgeon Orthopedic Surgery 08/21/24
--- OUTSIDE RECORDS SUMMARY | 2024-09-26 12:15 | XMS_ITS | Clinical Summary ---
Author Organization [facility] Address [address] [place] [address] Care Team Providers Care Ludlow Machine Operator Name Role Phone Sumit Higgins MD Primary Care Provider [phone] Allergies No known active allergies Medications metFORMIN (GLUCOPHAGE) 500 mg tablet Take 1 Tablet (500 mg) by mouth 3 times daily. 270 Tablet 3 06/28/2020 Active blood sugar diagnostic (OneTouch Verio test strips) Strip Test once daily Dx E11.9 100 Strip 3 07/07/2020 Active lancets (One Touch Delica) 33 gauge 1 Lancet daily. DX E11.9 100 Each 3 07/07/2020 Active doxycycline hyclate (VIBRAMYCIN) 100 mg capsule Take 1 Capsule (100 mg) by mouth 2 times daily. 20 Capsule 07/15/2020 Active albuterol sulfate 90 mcg/Actuation inhaler USE 2 PUFFS EVERY FOUR HOURS NEEDED WHEEZING 17 Gram 3 03/01/2021 Active Active Problems Patient Care Coordination No te Formatting of this note migh t be different from the original. Prev 01/05/20 Problem Noted Date Diagnosed Date DM type 2, goal HbA1c < 7% 03/08/2020 Sleep apnea 05/06/2018 Vitamin D deficiency 05/06/2018 Low testosterone 05/06/2018 Resolved Problems Problem Noted Date Diagnosed Date Resolved Date Prediabetes 05/06/2018 03/08/2020 Immunizations Immunization Administration Dates Next Due (ADACEL/BOOSTRIX)(10 YR UP) TDAP VACCINE, 0.5ML, IM 10/15/2015 Influenza Seasonal Unspecified Formulation IM Family History Relation Name Status Comments Father Alive Mother Alive Social History Tobacco Use Types Packs/Day Years Used Date Smoking Tobacco: Never Smokeless Tobacco: Never Alcohol Use Standard Drinks/Week Comments No 0 (1 standard drink = 0.6 oz pur e alcohol) Sex and Gender Information Value Date Recorded Sex Assigned at Not on file Legal Sex Male 11:21 AM CDT Gender Identity Not on file Sexual Orientation Not on file Last Filed Vital Signs Vital Sign Reading Time Taken Comments Blood Pressure 130/88 03/08/2020 1:09 PM CDT Pulse 70 03/08/2020 1:09 PM CDT Temperature 36.6 C (97.8 F) 07/15/2020 11:36 AM POSITION CLASSIFICATION SPECIALIST Respiratory Rate - - Oxygen Saturation 96% 03/08/2020 1:09 PM CDT Inhaled Oxygen Concentration - - Weight 112.9 kg (249 lb) 07/15/2020 11:36 AM POSITION CLASSIFICATION SPECIALIST Height 180.3 cm (5' 11 ) 07/15/2020 11:36 AM POSITION CLASSIFICATION SPECIALIST Body Mass Index 34.73 07/15/2020 11:36 AM POSITION CLASSIFICATION SPECIALIST Plan of Treatment Health Maintenance Due Date Last Done Comments DIABETES MICROALBUMIN ANNUAL SCREEN 1977 PNEUMOCOCCAL VACCINE 65+ YEA RS (1 of 2 - PCV) 1978 COLORECTAL SCREENING 02/03/2004 Colorectal Cancer Screening 02/03/2004 FIT-DNA Q 3 years 02/03/2004 FIT/FOBT Q 1 year 02/03/2004 Flex Sig/CT Colonography Q 5 years 02/03/2004 ZOSTER VACCINE (1 of 2) 2009 DIABETES HBA1C Q 6 MONTHS 12/23/20202019, 03/01/2020, 03/01/2020, Additional history exists DIABETES ANNUAL RETINAL EXAM 02/22/2021 02/23/2020 LDL CHOLESTEROL ANNUAL 03/01/2021 03/01/2020 DIABETES ANNUAL FOOT EXAM 03/08/2021 03/08/2020, 10/2019 INFLUENZA VACCINE (#1) 2024 05/06/2002 Preventative Visit- Commercial 08/06/2024 01/05/2020 DTAP/TDAP/TD VACCINES (2 - T d or Tdap) 10/14/2025 10/15/2015 RSV VACCINE (60+ or ) (1 - 1-dose 75+ series) 2034 Procedures Procedure Name Priority Date/Time Associated Diagnosis Comments LIPID PANEL Routine 03/01/2020 8:26 AM CDT Routine general medical examination at health care facility HEMOGLOBIN A1C Routine 03/01/2020 8:26 AM CDT Prediabetes from Last 3 Months or Most Recently Relevant to Health Maintenance Results * (ABNORMAL) HEMOGLOBIN A1C (03/01/2020 8:26 AM CDT) ABSTRACTED HGB A1C EXTERNAL LAB HEMOGLOBIN A1C 8.1(A) 4.0 - 6.0 % EXTERNAL LAB HEMOGLOBIN A1C EXTERNAL LAB GLUCOSE, MEAN BLOOD EXTERNAL LAB Blood 03/01/2020 8:26 AM CDT Sumit Higgins MD CHEMISTRY ORDERABLES Final Re sult EXTERNAL LAB * LIPID PANEL (03/01/2020 8:26 AM CDT) ABSTRACTED CHOLESTEROL EXTERNAL LAB ABSTRACTED TRIGLYCERIDE EXTERNAL LAB ABSTRACTED HDL EXTERNAL LAB ABSTRACTED LDL CALCULATED EXTERNAL LAB CHOLESTEROL 106 <=200 mg/dL EXTERNAL LAB TRIGLYCERIDE 47 <=150 mg/dL EXTERNAL LAB HDL 40 >=40 mg/dL EXTERNAL LAB LDL CALCULATED 56 5 - 130 mg/dL EXTERNAL LAB Blood 03/01/2020 8:26 AM CDT Sumit Higgins MD CHEMISTRY ORDERABLES Final Re sult EXTERNAL LAB from Last 3 Months or Most Recently Relevant to Health Maintenance Insurance [facility] [id number] Care Teams Ludlow Machine Operator Relationship Specialty Start Date End Date Sumit Higgins MD PCP - General Internal Medicine 05/06/18
--- OUTSIDE RECORDS SUMMARY | 2024-09-26 12:15 | XMS_ITS | Clinical Summary ---
Author Organization [facility] Address [address], [address] [address] Phone Care Team Providers Care Senior Internal Auditor Name Role Phone Sumit Higgins MD Primary Care Provider [phone] Allergies No known active allergies Medications VENTOLIN HFA 108 (90 Base) MCG/ACT Aerosol SolutionIndicatio ns:Mild intermittent asthma without complication USE 2 PUFFS EVERY FOUR HOURS NEEDED WHEEZING 36 g 3 8 Active Active Problems Problem Noted Date Diagnosed Date AMERICO (obstructive sleep apnea) 03/19/2017 High blood pressure 12/18/2016 Mild intermittent asthma without complication Low testosterone level in male 12/18/2016 Immunizations Immunization Administration Dates Next Due TDAP Vaccine 10/15/2015 Family History Medical History Relation Name Comments Heart Attack Father Hypertension Father Other-comment Father GB syndrome Cancer Maternal Grandmother pancrea tic Diabetes Mother Hypertension Mother Lupus Mother Relation Name Status Comments Father Alive Maternal Grandmother Mother Alive Social History Tobacco Use Types Packs/Day Years Used Date Smoking Tobacco: Never Smokeless Tobacco: Never Tobacco Cessation:Counseling Given: Yes Alcohol Use Standard Drinks/Week Comments Yes 0 (1 standard drink = 0.6 oz pur e alcohol) rarely Sexually Active Control Partners Comments Yes Sex and Gender Information Value Date Recorded Sex Assigned at Not on file Legal Sex Male 10:29 PM CDT Gender Identity Not on file Sexual Orientation Not on file 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 file Not on file Not on file Last Filed Vital Signs Vital Sign Reading Time Taken Comments Blood Pressure 140/88 02/18/2020 12:39 PM CDT Pulse 78 02/18/2020 12:39 PM CDT Temperature 37.2 C (98.9 F) 02/18/2020 10:28 AM CDT Respiratory Rate 18 02/18/2020 12:39 PM CDT Oxygen Saturation 98% 02/18/2020 12:39 PM CDT Inhaled Oxygen Concentration - - Weight 113.4 kg (250 lb) 02/18/2020 10:28 AM CDT Height 180.3 cm (5' 11 ) 02/18/2020 10:28 AM CDT Body Mass Index 34.87 02/18/2020 10:28 AM CDT Plan of Treatment Health Maintenance Due Date Last Done Comments Hepatitis C Virus (HCV) Screening 1959 Pneumococcal Immunization (5 0+ years) (1 of 2 - PCV) 1978 Cologuard 2009 Immunochemical Fecal Occult Blood 2009 Zoster Immunization (1 of 2) 2009 Respiratory Syncytial Virus (RSV) Immunization (Adult) (1 - Risk 60-74 years 1-dose series) 2019 Colonoscopy 08/11/2021 08/11/2016 Colorectal Cancer Screening 08/11/2021 Influenza Immunization (#1) 2024 SARS-COV-2 Immunization ( season) 2024 Td Immunization Every 10 Yea rs (Adults With 1 Tdap) 10/14/2025 10/15/2015 08/11/2016 PSA Discussion Discontinued 06/25/2020, 03/01/2020, 12/04/2016 Hepatitis B Immunization Aged Out No longer eligible based on patient's age to complete this topic Meningococcal Immunization (ACWY) Aged Out No longer eligible based on patient's age to complete this topic Rotavirus Immunization Aged Out No lo nger eligible based on patient's age to complete this topic Procedures Procedure Name Priority Date/Time Associated Diagnosis Comments PSA SCREEN Routine 06/25/2020 8:42 AM LEHR TENDER Increased prostate specific antigen (PSA) velocity from Last 3 Months or Most Recently Relevant to Health Maintenance Results * PSA SCREEN (06/25/2020 8:42 AM LEHR TENDER) PSA SCREEN, TOTAL 3.01 <=4.00 ng/mL 06/25/2020 10:46 AM LEHR TENDER [facility] Blood Venipuncture / Unknown 06/25/2020 8:42 AM LEHR TENDER 06/25/2020 9:51 AM LEHR TENDER Narrative [facility] - 06/25/2020 10:46 AM LEHR TENDER PSA NOTE: The PSA value should be used in conjunction with information available from clinical evaluation and other diagnostic procedures. us Sumit Higgins MD CHEMISTRY ORDERABLES Final Re sult [facility] [address] [place] [address] from Last 3 Months or Most Recently Relevant to Health Maintenance Care Teams Senior Internal Auditor Relationship Specialty Start Date End Date Sumit Higgins MD [address] [place] [id number] PCP - General 02/18/20
--- OUTSIDE RECORDS SUMMARY | 2024-09-26 12:15 | XMS_ITS | Clinical Summary ---
Author Organization [facility] [address] [facility] Address [address] shelley [facility] [place] [address] Care Team Providers Care Clinical Laboratory Assistant Name Role Phone Aramis Cruz MD Primary Care Provider [phone] Travis Berrios MD Unavailable [phone] Allergies No known active allergies Medications Ventolin HFA 90 mcg/actuation inhaler Inhale 2 puffs every 6 (six) hours as needed 1 Active metFORMIN (GLUCOPHAGE) 500 mg tablet Take [...] Date Primary osteoarthritis of right hip 08/14/2024 Encounters Date Type Department Care Team Description 09/09/2024 1:00 PM VP SITE Telemedicine [facility] Medical [facility] Orthopedics and Sports Medicine [address] [place] [address] [address] [place] [address] Stacia Lind NP Aftercare following right hip joint replacement surgery (Primary Dx) 09/02/2024 Telephone [facility] Orthopedics and Sports Medicine [address] [place] [address] [address] [place] [address] Travis Berrios MD post op questions 08/25/2024 [facility] Post Discharge Follow up phone call [facility] [address] [place] [address] Isamar Ahumada 08/22/2024 [facility] Post Discharge Follow up phone call [facility] [address] [address] Isamar Ahumada 08/22/2024 [facility] Post Discharge Follow up phone call [facility] [address] [address] Isamar Ahumada 08/20/2024 10:00 AM VP SITE - 08/20/2024 12:25 PM VP SITE Surgery [facility] 1 [place] [address] Travis Berrios MD Right Total Hip Arthroplasty- Anterior Approach 08/20/2024 9:38 AM VP SITE Anesthesia Event [facility] 1 [place] [address] Angelina Malone MD Reynolds, Ethan Emerson, MD 08/20/2024 7:26 AM VP SITE - 08/21/2024 2:39 PM VP SITE Hospital Encounter [facility] 1 [place] [address] Travis Berrios MD Primary osteoarthritis of right hip Discharge Disposition: Discharge to home or self care 08/04/2024 Telephone [facility] Medical [facility] Orthopedics and Sports Medicine [address] [facility] [address] [place] [address] Travis Berrios MD 08/04/2024 Documentation [facility] Medicine [address] [facility] [address] [place] [address] Ashley Louis MA Surgical Clearance 07/28/2024 10:00 AM VP SITE Lab [address] [address] 07/28/2024 9:40 AM VP SITE [address] [address] Pre-operative exam 07/28/2024 9:36 AM VP SITE - 07/28/2024 11:59 PM VP SITE Hospital Encounter [facility] 1 [place] [address] Pre-operative exam Discharge Disposition: Discharge to home or self care 07/28/2024 9:36 AM VP SITE - 07/28/2024 11:59 PM VP SITE Hospital Encounter [facility] 1 [place] [address] Pre-operative exam Discharge Disposition: Discharge to home or self care from Last 3 Months Surgical History Surgery Date Site/Laterality Comments FLUORO GUIDED INJECTION HIP RIGHT 04/14/2024 Right HERNIA REPAIR x 2 KNEE ARTHROSCOPY Left Medical History Medical History Date Comments Diabetes mellitus (HCC) Awareness under anesthesia Asthma chemical induced asthma Sleep apnea cpap Social History Tobacco Use Types Packs/Day Years [...] on file Legal Sex Male 4:33 PM VP SITE Gender Identity Not on file Sexual Orientation Not on file Obstetrics History Last Filed Vital Signs Vital Sign Reading Time Taken Comments Blood Pressure 131/78 08/21/2024 2:06 AM VP SITE Pulse 95 08/21/2024 2:06 AM VP SITE Temperature 36.4 C (97.6 F) 08/21/2024 2:06 AM VP SITE Respiratory Rate 18 08/21/2024 2:06 AM VP SITE Oxygen Saturation 97% 08/21/2024 2:06 AM VP SITE Inhaled Oxygen Concentration - - Weight 110 kg (242 lb 8.1 oz) 08/20/2024 7:36 AM VP SITE Height 180.3 cm (5' 11 ) 08/20/2024 7:36 AM VP SITE Body Mass Index 33.82 08/20/2024 7:36 AM VP SITE Plan of Treatment Health Maintenance Due Date Last Done Comments Colon Cancer Screening-Colonoscopy 1960 Hepatitis C Screening 1960 Prostate Cancer Screening-PSA 1960 Hepatitis B Screening 1977 Pneumococcal vaccine 65+ (1 of 2 - PCV) 1978 Zoster Vaccine (1 of 2) 2009 Well Visit 65+ 02/03/2024 Influenza Vaccine (#1) 2024 05/06/2002 Depression Screening 08/14/2025 08/14/2024 Fall Risk Assessment 08/21/2025 08/21/2024, 08/14/19 25 DTaP/Tdap/Td Vaccine (2 - Td or Tdap) 10/14/202506/2016 Medical Devices Implanted Type Area Academic Affairs Assistant Device Identifier Shelf Expiration Date Model / Serial / Lot [employer] [place] 58mm Sector Hip Shell Acetabular Gription Sterile Latex Free [id number] - [id number] Implanted:Qty: 1 on 08/20/2024 by Travis Berrios MD at [facility] Right: Hip [employer] [id number] 03/05/2034 [id number] / / [id number] [employer] [place] 58mm 36mm Hip Neutral Liner Acetabular Altrx Sterile Latex Free [id number] - [id number] Implanted:Qty: 1 on 08/20/2024 by Travis Berrios MD at [facility] Right: Hip [employer] [id number] 04/05/2029 [id number] / / [id number] [employer] [place] 6.5mm 35mm Acetabular Cancellous Screw Bone Sterile 1217-35-500 - [id number] Implanted:Qty: 1 on 08/20/2024 by Travis Berrios MD at [facility] Right: Hip [employer] [id number] 2034 1217-35-500 / / [id number] [employer] Actis L111 Mm Collar Hip 8 High Offset Stem Femoral [id number] - [id number] Implanted:Qty: 1 on 08/20/2024 by Travis Berrios MD at [facility] Right: Hip [employer] [id number] 01/03/2034 [id number] / / [id number] [employer] Articul/Trip 36mm Cementless Hip +8.5mm /14 Taper Head Femoral Latex Free 136536-392 - [id number] Implanted:Qty: 1 on 08/20/2024 by Travis Berrios MD at [facility] Right: Hip [employer] [id number] 06/05/2029 1365-36330 / / [id number] Procedures Procedure Name Priority Date/Time Associated Diagnosis Comments POCT GLUCOSE DEVICE Routine 08/21/2024 11:32 AM VP SITE POCT GLUCOSE DEVICE Routine 08/21/2024 7 :48 AM VP SITE EGFR Routine 08/21/2024 3:02 AM VP SITE CBC WITHOUT DIFFERENTIAL Routine 08/21/2024 3:02 AM VP SITE BASIC METABOLIC PANEL Routine 08/21/2024 3:02 AM VP SITE POCT GLUCOSE DEVICE Routine 08/21/2024 2 :05 AM VP SITE POCT GLUCOSE DEVICE Routine 08/20/2024 8 :26 PM VP SITE POCT GLUCOSE DEVICE Routine 08/20/2024 6 :21 PM VP SITE POCT GLUCOSE DEVICE Routine 08/20/2024 5 :17 PM VP SITE SURGICAL PATHOLOGY Routine 08/20/2024 2: 38 PM VP SITE Primary osteoarthritis of right hip XR PELVIS ORTHO VIEW IP Routine 08/20/2024 12:20 PM VP SITE POCT GLUCOSE DEVICE Routine 08/20/2024 12:11 PM VP SITE FL FLUOROSCOPY < 1 HOUR IP Routine 08/20/2024 11:43 AM VP SITE XR HIP RIGHT 1 VIEW IP Routine 08/20/2024 11:43 AM VP SITE ANESTHESIA SPINAL BLOCK Routine 08/20/2024 10:00 AM VP SITE ARTHROPLASTY TOTAL HIP - ANTERIOR APPROACH 08/20/2024 9:18 AM VP SITE Primary osteoarthritis of right hip Special Needs Anterior Approach, Depuy- Actis , Omnitrac, Aquamantys, 1 liter beta rinse, Pt to go home POCT GLUCOSE DEVICE Routine 08/20/2024 7 :53 AM VP SITE PROTIME-INR STAT 08/20/2024 7:53 AM VP SITE APTT STAT 08/20/2024 7:53 AM VP SITE ECG 12-LEAD Routine 07/28/2024 10:27 AM VP SITE Pre-operative exam XR CHEST PA LATERAL 2 VIEWS Schedule Routine, Read Routine (OP Routine) 07/28/2024 10:25 AM VP SITE Pre-operative exam EGFR Routine 07/28/2024 9:53 AM VP SITE EGFR Routine 07/28/2024 9:53 AM VP SITE Pre-operative exam DIFFERENTIAL AUTO Routine 07/28/2024 9:5 3 AM VP SITE Pre-operative exam LIPID PANEL Routine 07/28/2024 9:53 AM VP SITE CBC WITHOUT DIFFERENTIAL Routine 07/28/2024 9:53 AM VP SITE HEMOGLOBIN A1C Routine 07/28/2024 9:53 AM VP SITE CREATININE Routine 07/28/2024 9:53 AM VP SITE COMPREHENSIVE METABOLIC PANEL Routine 07/28/2024 9:53 AM VP SITE HEMOGLOBIN A1C Routine 07/28/2024 9:53 AM VP SITE Pre-operative exam COMPREHENSIVE METABOLIC PANEL Routine 07/28/2024 9:53 AM VP SITE Pre-operative exam CBC WITH AUTO DIFFERENTIAL Routine 07/28/2024 9:53 AM VP SITE Pre-operative exam ALBUMIN CREATININE RATIO, URINE Routine 07/28/2024 9:39 AM VP SITE URINALYSIS AND REFLEX TO MICROSCOPIC AND CULTURE Routine 07/28/2024 9:39 AM VP SITE Pre-operative exam from Last 3 Months Results * (ABNORMAL) POCT glucose (08/21/2024 11:32 AM VP SITE) Glucose, POC 220(H) 70 - 199 mg/dL Blood 08/21/2024 11:3 2 AM VP SITE 08/21/2024 11:32 AM VP SITE Travis Berrios MD LAB POCT ORDERABLES - DE VICE Final Result Performing Organization Address City/[facility]/ZIP Co de Phone Number [facility]ANCE [facility] ([place]) 1 [facility] [place] [address] * POCT glucose (08/21/2024 7:48 AM VP SITE) Glucose, POC 181 70 - 199 mg/dL Blood 08/21/2024 7:48 AM VP SITE 08/21/2024 7:48 AM VP SITE Travis Berrios MD LAB POCT ORDERABLES - DE VICE Final Result Performing Organization Address [facility] Co de Phone Number [facility]ANCE [facility] ([place]) 1 [facility] [place] [address] * eGFR (08/21/2024 3:02 AM VP SITE) Pathologist [facility] eGFR >90 >=60 mL/min/1. 73 m2 Comment: [...] last reviewed 2021. Blood 08/21/2024 3:02 AM VP SITE 08/21/2024 4:14 AM VP SITE Stacia Lind FOOD SERVICE ATTENDANT LAB BLOOD ORDERABLES Fi nal Result Performing Organization Address [facility]/ZIP Co de Phone Number [facility] ([place]) 1 [facility] [place] [address] * (ABNORMAL) CBC without differential (08/21/2024 3:02 AM VP SITE) WBC 12.3(H) 3.8 - 9.9 K/cumm Hgb 11.7(L) 13.0 - 17.5 g/dL [facility] ([place]) Hct 35.5(L) 38.9 - 50.3 % [facility] ([place]) Plt 241 150 - 400 K/cumm [facility] ([place]) MPV 9.3 9.1 - 12.3 fL [facility] ([place]) RBC 4.04(L) 4.30 - 5.80 M/cumm [facility] ([place]) MCV 87.9 81.3 - 96.4 fL [facility] ([place]) MCH 29.0 27.1 - 33.3 pg [facility] ([place]) MCHC 33.0 32.3 - 35.7 g/dL [facility] ([place]) RDW CV 13.0 11.1 - 14.9 % [facility] ([place]) RDW SD 41.6 35.7 - 48.1 fL [facility] ([place]) NRBC abs 0.00 0.00 - 0.01 K/cumm [facility] ([place]) Blood 08/21/2024 3:02 AM VP SITE 08/21/2024 4:12 AM VP SITE Stacia Lind FOOD SERVICE ATTENDANT LAB BLOOD ORDERABLES Fi nal Result Performing Organization Address [facility]/ZIP Co de Phone Number [facility] ([place]) 1 [facility] [place] [address] * (ABNORMAL) Basic metabolic panel (08/21/2024 3:02 AM VP SITE) Sodium 137 135 - 145 mmol/L Potassium, pl 4.3 3.3 - 4.9 mmol/L [facility] ([place]) Chloride 105 97 - 110 mmol/L [facility] ([place]) CO2 20(L) 22 - 32 mmol/L [facility] ([place]) Anion gap 12 2 - 15 mmol/L [facility] ([place]) BUN 22 6 - 25 mg/dL [facility] ([place]) Creatinine 0.81 0.80 - 1.30 mg/dL [facility] ([place]) Glucose 160 70 - 199 mg/dL [facility] ([place]) Comment: Interpretive Data Fasting glucose >/= [...] 2022. Calcium 8.9 8.5 - 10.3 mg/dL [facility] ([place]) Blood 08/21/2024 3:02 AM VP SITE 08/21/2024 4:14 AM VP SITE Stacia Lind FOOD SERVICE ATTENDANT LAB BLOOD ORDERABLES Fi nal Result LANCE [facility] ([place]) 1 [facility] Department [place] [address] * POCT glucose (08/21/2024 2:05 AM VP SITE) Glucose, POC 156 70 - 199 mg/dL Blood 08/21/2024 2:05 AM VP SITE 08/21/2024 2:05 AM VP SITE Travis Berrios MD LAB POCT ORDERABLES - DE VICE Final Result [facility] ([place]) 1 [facility] [place] [address] * (ABNORMAL) POCT glucose (08/20/2024 8:26 PM VP SITE) Glucose, POC 265(H) 70 - 199 mg/dL Blood 08/20/2024 8:26 PM VP SITE 08/20/2024 8:26 PM VP SITE us Travis Berrios MD LAB POCT ORDERABLES - DE VICE Final Result [facility] ([place]) 1 [facility] [place] [address] * (ABNORMAL) POCT glucose (08/20/2024 6:21 PM VP SITE) Glucose, POC 234(H) 70 - 199 mg/dL Blood 08/20/2024 6:21 PM VP SITE 08/20/2024 6:21 PM VP SITE us Travis Berrios MD LAB POCT ORDERABLES - DE VICE Final Result [facility] ([place]) 1 [facility] [place] [address] * (ABNORMAL) POCT glucose (08/20/2024 5:17 PM VP SITE) Glucose, POC 392(H) 70 - 199 mg/dL Blood 08/20/2024 5:17 PM VP SITE 08/20/2024 5:17 PM VP SITE us Travis Berrios MD LAB POCT ORDERABLES - DE VICE Final Result [facility] ([place]) 1 [facility] [place] [address] * Surgical pathology (08/20/2024 2:38 PM VP SITE) Tissue (Bone Fragment(s),) 08/20/2024 11:36 AM VP SITE Narrative PATHOLOGY [facility] ([place]) - 08/22/2024 4:04 PM VP SITE EPIC results best viewed via link to PDF [facility] Department of Pathology [address] [place] [address] Note to Patients: This report may contain [...] the details. Final Report Patient Name: OSMANY GIBBS Address: [address] [place] [phone] Gender: M : 1960 (Age: 64) Service: Surgery Location: [facility] Hospital #: [id number] Patient Type: [facility] OP in bed Taken: 08/20/2024 Received: 08/20/2024 [...] is received in a single container labeled OSMANY GIBBS and right hip . It is a 5.3 cm in diameter femoral head and separate 15 cc aggregate of almeida gritty hemorrhagic cortical and cancellous bone. The articular surface of the femoral head shows degenerative changes of the cartilage with erosion and eburnation. The femoral neck margin is smooth. The specimen is bisected revealing no subchondral gross lesions. Plush Finisher sections are submitted in one cassette after decalcification. Felipe Kellogg R.N., P.Toño./Naida Starr M.D. REPORT IMAGES AND SCANNED DOCUMENTS, IF INCLUDED, ONLY VIEWABLE IN PDF VERSION OF REPORT The performance characteristics of some immunohistochemical stains, fluorescence in-situ hybridization tests and immunophenotyping by flow cytometry cited in this report (if any) were determined by the Surgical Pathology Department at [facility] as part of an ongoing quality technician program and in compliance with federally mandated [...] characteristics determined by the Surgical Pathology Department [facility]. It has not been cleared or approved by the U. S. Food and Drug Administration. Note for decalcified specimens: This assay has not been validated on decalcified tissues. Results should be interpreted with caution given the possibility of false negativity on decalcified specimens us Travis Berrios MD LAB PATHOLOGY ORDERABLES Final Result [facility]OLOGY [facility] ([place]) 1 [place] [address] * XR Pelvis Ortho View (08/20/2024 12:20 PM VP SITE) Anatomical Region Laterality Modality Body, Pelvis N/A Computed Radiogr aphy 08/20/2024 1:58 PM VP SITE Narrative 08/20/2024 1:59 PM VP SITE EXAM DESCRIPTION: XR PELVIS ORTHO VIEW REASON [...] by Esequiel Rosario M.D. CH: Report ID: [id number] Reading Location: [id number] Procedure Note Esequiel Rosario Jr., MD - [...] by Esequiel Rosario M.D. CH: Report ID: [id number] Reading Location: [id number] Stacia Lind NP IMG XR PROCEDURES Final Result * POCT glucose (08/20/2024 12:11 PM VP SITE) Glucose, POC 165 70 - 199 mg/dL Blood 08/20/2024 12:1 1 PM VP SITE 08/20/2024 12:11 PM VP SITE Travis Berrios MD LAB POCT ORDERABLES - DE VICE Final Result Performing Organization Address [facility]/ZIP Co de Phone Number LANCE [facility] ([place]) 1 [facility] Department [place] [address] * FL Fluoroscopy < 1 Hour (08/20/2024 11:43 AM VP SITE) Narrative [facility] - 08/20/2024 11:45 AM VP SITE The images from this study are not interpreted by Radiology. Please refer to the physician's procedure / OR operative note. Travis Berrios MD IMG FLUOROSCOPY PROCEDUR ES Final Result Performing Organization Address [facility] Co de Phone Number [facility] * XR Hip Right 1 View (08/20/2024 11:43 AM VP SITE) Anatomical Region Laterality Modality Lower Extremities, Hip, Pelvis Right R adio Fluoroscopy 08/20/2024 11:5 5 AM VP SITE Narrative 08/20/2024 11:56 AM VP SITE EXAM DESCRIPTION: XR HIP RIGHT 1 VIEW REASON FOR STUDY: osteoarthritis 10.3 sec fluoro 1.02 mGy FINDINGS: Multiple fluoroscopic images consisting of a single view(s) submitted with comparison 04/14/2024 . Dose area product equals [id number] mGym*2. Fluoroscopic images demonstrate an in progress right total hip arthroplasty placement . Soft tissue gas is present. IMPRESSION: In progress right total hip arthroplasty placement. THIS IS AN ELECTRONICALLY VERIFIED FINAL REPORT 08/20/2024 11:56 AM - Electronically signed by Esequiel Merritt M.D. MF: [id number] Report ID: [id number] Reading Location: [id number] Procedure Note Esequiel Merritt MD - 08/20/2024 EXAM DESCRIPTION: XR HIP RIGHT 1 VIEW REASON FOR STUDY: osteoarthritis 10.3 sec fluoro 1.02 mGy FINDINGS: Multiple fluoroscopic images consisting of a single view(s) submittedwith comparison 04/14/2024 . Dose area product equals 0.12259 mGym*2. Fluoroscopic images demonstrate an in progress right total hiparthroplasty placement . Soft tissue gas is present. IMPRESSION: In progress right total hip arthroplasty placement. THIS IS AN ELECTRONICALLY VERIFIED FINAL REPORT 08/20/2024 11:56 AM - Electronically signed by Esequiel Merritt M.D. MF: [id number] Report ID: [id number] Reading Location: [id number] Travis Berrios MD IMG XR PROCEDURES Final Result * Spinal Block (08/20/2024 10:00 AM VP SITE) Narrative Agustin Vallecillo CRNA - 08/20/2024 10:00 AM VP SITE Agustin Vallecillo CRNA 08/20/2024 10:00 AM Spinal Block Patient location: OR Reason for block: primary anesthetic Staff: Placed by: DRUM SANDER OFFBEARER:Agustin Vallecillo CRNA Procedure prep: Preprocedure checklist: patient [...] Result * POCT glucose (08/20/2024 7:53 AM VP SITE) Glucose, POC 163 70 - 199 mg/dL Blood 08/20/2024 7:53 AM VP SITE 08/20/2024 7:53 AM VP SITE Travis Berrios MD LAB POCT ORDERABLES - DE VICE Final Result Performing Organization Address [facility] Co de Phone Number [facility] ([place]) 1 [facility] [place] [address] * (ABNORMAL) aPTT (08/20/2024 7:53 AM VP SITE) aPTT 39(H) 28 - 38 sec [facility] ([place]) Comment: Interpretive Data Heparin therapeutic range: 66.0 - 100.0 seconds. Range based on correlation with therapeutic heparin activity range of 0.3 - 0.7 Units/mL. Current interpretive data was last revised on 2023. Blood 08/20/2024 7:53 AM VP SITE 08/20/2024 8:03 AM VP SITE Travis Berrios MD LAB BLOOD ORDERABLES Fin al Result Performing Organization Address [facility] Co de Phone Number [facility] ([place]) 1 [facility] [place] [address] * Protime-INR (08/20/2024 7:53 AM VP SITE) PT 10.3 9.7 - 13.0 sec [facility] ([place]) INR 0.95 0.90 - 1.20 [facility] ([place]) Comment: Interpretive data Oral anticoagulant therapeutic ranges: Venous thromboembolism prophylaxis or treatment: 2.0-3.0 CARDIOLOGY Standard range: 2.0-3.0 High-intensity range: 2.5-3.5 Refer to indication-specific guidelines for appropriate target ranges for prosthetic heart valve replacement. Current interpretive data was last revised on 2019. Blood 08/20/2024 7:53 AM VP SITE 08/20/2024 8:03 AM VP SITE Travis Berrios MD LAB BLOOD ORDERABLES Fin al Result [facility] ([place]) 1 [facility] Department [place] [address] * ECG 12 lead (07/28/2024 10:27 AM VP SITE) 07/28/2024 10:1 9 AM VP SITE Narrative [facility] - 07/29/2024 7:00 AM VP SITE Vent Rate: 94 bpm RR Interval: 632 msec [place] Interval: 160 msec QRS Duration: 81 msec QT Interval: 325 msec QTC Interval: 377 msec P-R-T [place]: 53 - -15 - 51 degrees IMPRESSION: SINUS RHYTHM NONSPECIFIC T-WAVE ABNORMALITY BORDERLINE ECG Electronically Signed By: Juan Hi MD Travis Berrios MD ECG ORDERABLES Final Re sult Performing Organization Address [facility] Co de Phone Number [facility] [address] [place] * XR Chest Pa Lateral 2 Views (07/28/2024 10:25 AM VP SITE) Anatomical Region Laterality Modality Body, Chest N/A Computed Radiogr aphy 08/02/2024 11:1 2 AM VP SITE Narrative 08/02/2024 11:13 AM VP SITE EXAM DESCRIPTION: XR CHEST PA LATERAL 2 [...] Esequiel Enciso M.D. MJ: FELIPE Report ID: [id number] Reading Location: [id number] Procedure Note Esequiel Enciso MD - 08/02/2024 [...] Esequiel Enciso M.D. MJ: FELIPE Report ID: [id number] Reading Location: [id number] Travis Berrios MD IMG XR PROCEDURES Final Result * eGFR (07/28/2024 9:53 AM VP SITE) eGFR 90 >=60 mL/min/1. 73 m2 Comment: [...] of Race in Diagnosing Kidney Disease, JASN 2021). The CKD-EPI equation should not be used for patients with unstable renal function and has not been validated in children and those over 70. Current interpretive data was last reviewed 2021. Blood 07/28/2024 9:53 AM VP SITE 07/28/2024 10:18 AM VP SITE us Yulisa Greene NP LAB BLOOD ORDERABLES Final Res ult Performing Organization Address City/[facility]/ZIP Co de Phone Number [facility] ([place]) 1 [facility] [place] [address] * eGFR (07/28/2024 9:53 AM VP SITE) [facility] eGFR >90 >=60 mL/min/1. 73 m2 Comment: [...] last reviewed 2021. Blood 07/28/2024 9:53 AM VP SITE 07/28/2024 10:18 AM VP SITE us Travis Berrios MD LAB BLOOD ORDERABLES Fin al Result Performing Organization Address City/[facility]/ZIP Co de Phone Number [facility] [place]) 1 [facility] [place] [address] * Differential, auto (07/28/2024 9:53 AM VP SITE) Neutrophil abs 3.4 1.5 - 6.5 K/cumm [...] revised on 2017. Basophil pct 0.7 % [facility] ([place]) Comment: Interpretive Data Percent cell count reference ranges are not reported, since discordance with absolute values may lead to misinterpretation of CBC data. Current Interpretive Data was last revised on 2017. Blood 07/28/2024 9:53 AM VP SITE 07/28/2024 10:18 AM VP SITE Travis Berrios MD LAB BLOOD ORDERABLES Fin al Result [facility] ([place]) 1 [facility] [employer] [place] [address] * (ABNORMAL) CBC with auto differential (07/28/2024 9:53 AM VP SITE) WBC 5.4 3.8 - 9.9 K/cumm Hgb 14.0 13.0 - 17.5 g/dL [facility] ([place]) Hct 42.7 38.9 - 50.3 % [facility] ([place]) Plt 252 150 - 400 K/cumm [facility] ([place]) MPV 9.0(L) 9.1 - 12.3 fL [facility] ([place]) [...] [facility] ([place]) Blood 07/28/2024 9:53 AM VP SITE 07/28/2024 10:18 AM VP SITE Travis Berrios MD LAB BLOOD ORDERABLES Fin al Result [facility] ([place]) 1 [facility] [place] [address] * (ABNORMAL) CBC without differential (07/28/2024 9:53 AM VP SITE) WBC 5.5 3.8 - 9.9 K/cumm Hgb 14.0 13.0 - 17.5 g/dL [facility] ([place]) Hct 42.6 38.9 - 50.3 % [facility] ([place]) Plt 230 150 - 400 K/cumm [facility] ([place]) MPV 8.9(L) 9.1 - 12.3 fL [facility] ([place]) RBC 4.84 4.30 - 5.80 M/cumm [facility] ([place]) MCV 88.0 81.3 - 96.4 fL [facility] ([place]) MCH 28.9 27.1 - 33.3 pg [facility] ([place]) MCHC 32.9 32.3 - 35.7 g/dL [facility] ([place]) RDW CV 13.0 11.1 - 14.9 % [facility] ([place]) RDW SD 41.9 35.7 - 48.1 fL LANCE KELSEY ([place]) NRBC abs 0.00 0.00 - 0.01 K/cumm LANCE KELSEY ([place]) Blood 07/28/2024 9:53 AM VP SITE 07/28/2024 10:18 AM VP SITE Yulisa Greene NP LAB BLOOD ORDERABLES Final Res ult LANCE KELSEY ([place]) 1 [facility] Department [place] [address] * (ABNORMAL) Hemoglobin A1c (07/28/2024 9:53 AM VP SITE) Hgb A1C 5.9(H) 4.0 - 5.6 % Estimated Average Glucose 123 mg/dL LANCE KELSEY ([place]) Comment: The ADA recommends reporting an estimated Average Glucose (eAG) with all Hemoglobin A1c results using the equation derived from a study of 507 normal and diabetic adults. Minority populations were underrepresented and children were not included. (Diabetes Care 31:1348-9723, 2008). The eAG is not equivalent to a fasting glucose. Blood 07/28/2024 9:53 AM VP SITE 07/28/2024 10:18 AM VP SITE Yulisa Greene NP LAB BLOOD ORDERABLES Final Res ult Performing Organization Address [facility] Co de Phone Number LANCE KELSEY ([place]) 1 [facility] [place] [address] * (ABNORMAL) Hemoglobin A1c (07/28/2024 9:53 AM VP SITE) Hgb A1C 5.9(H) 4.0 - 5.6 % Estimated Average Glucose 123 mg/dL LANCE KELSEY ([place]) Comment: The ADA recommends reporting an estimated Average Glucose (eAG) with all Hemoglobin A1c results using the equation derived from a study of 507 normal and diabetic adults. Minority populations were underrepresented and children were not included. (Diabetes Care 31:9911-8513, 2008). The eAG is not equivalent to a fasting glucose. Blood 07/28/2024 9:53 AM VP SITE 07/28/2024 10:18 AM VP SITE Travis Berrios MD LAB BLOOD ORDERABLES Fin al Result Performing Organization Address [facility] Co de Phone Number LANCE KELSEY ([place]) 1 [facility] [place] [address] * Creatinine (07/28/2024 9:53 AM VP SITE) Creatinine 0.94 0.80 - 1.30 mg/dL Blood 07/28/2024 9:53 AM VP SITE 07/28/2024 10:18 AM VP SITE Yulisa Greene NP LAB BLOOD ORDERABLES Final Res ult Performing Organization Address [facility] Co de Phone Number LANCE KELSEY ([place]) 1 [facility] [place] [address] * Lipid panel (07/28/2024 9:53 AM VP SITE) Cholesterol 103 30 - 199 mg/dL Comment: [...] on 2018. Triglycerides 53 <=149 mg/dL LANCE KELSEY ([place]) Comment: Interpretive Data [...] mg/dL High: >160 mg/dL Calculated using the Gabriel LDL-C estimating equation. This equation was implemented [...] on 2024. Non-HDL Cholesterol 60 mg/dL [facility] ([place]) Comment: Interpretive Data Ages < or [...] R [facility] ([place]) Blood 07/28/2024 9:53 AM VP SITE 07/28/2024 10:18 AM VP SITE us Yulisa Greene NP LAB BLOOD ORDERABLES Final Res ult LANCE KELSEY ([place]) 1 [facility] Department [place] [address] * (ABNORMAL) Comprehensive metabolic panel (07/28/2024 9:53 AM VP SITE) Sodium 138 135 - 145 mmol/L Potassium, [...] classification and Diagnosis of Diabetes Diabetes Care 202; 46: S19-S40. Current interpretive data was last [...] [facility] ([place]) Blood 07/28/2024 9:53 AM VP SITE 07/28/2024 10:18 AM VP SITE us Yulisa Greene NP LAB BLOOD ORDERABLES Final Res ult [facility] ([place]) 1 [facility] Department [place] [address] * (ABNORMAL) Comprehensive metabolic panel (07/28/2024 9:53 AM VP SITE) Sodium 135 135 - 145 mmol/L Potassium, [...] [facility] ([place]) Blood 07/28/2024 9:53 AM VP SITE 07/28/2024 10:18 AM VP SITE us Travis Berrios MD LAB BLOOD ORDERABLES Fin al Result [facility] ([place]) 1 [facility] Department of Laboratories [place], [place] [id number] * (ABNORMAL) Urinalysis reflex to microscopic and culture Urine (07/28/2024 9:39 AM VP SITE) Color, ur Yellow Yellow Clarity, ur Clear [...] tendency for uric acid stone formation. Source: [facility] Current Interpretive Data was last revised on [...] for microscopic UA and culture not met. [facility] ([place]) Urine 07/28/2024 9:39 AM VP SITE 07/28/2024 10:20 AM VP SITE us Travis Berrios MD LAB MICROBIOLOGY - GENER AL ORDERABLES Final Result LANCE KELSEY ([place]) 1 [facility] Department [place] [address] * Albumin Creatinine Ratio, Urine (07/28/2024 9:39 AM VP SITE) Albumin Ur 27.2 mg/L Comment: Interpretive Data No reference range established. Current interpretive data was last revised 2018. Testing performed by: [facility], [address] [place] [address], [place]., [address] Creatinine Ur 276.6 mg/dL [facility] ([place]) Comment: Interpretive Data No reference range established. Current interpretive data was last revised 2018. Testing performed by: [facility], [address] [place] [address], [place]., [address] Albumin Creatinine Ratio, Ur 10 1 - 29 mg/g [facility] ([place]) Comment:Testing performed by : [facility], [address] [place] [address], [place]., [address] Urine 07/28/2024 9:39 AM VP SITE 07/28/2024 1:31 PM VP SITE us Yulisa Greene NP LAB URINE ORDERABLES Final Res ult LANCE LOW ([place]) 1 [facility] Department [place] [address] from Last 3 Months Insurance [facility] CHOICE PLUS [facility] HMO/PPO Address: [id number] [place] [address] [facility] CHOICE PLUS [facility] HMO/PPO Address: [facility] [address] [place] [address] MEDICARE Advance Directives For more information, please contact: [phone] * Full Code (Latest Code Status on File) Date Activated Date Inactivated Comments 08/20/2024 1:14 PM 08/21/2024 6:44 PM Care Teams Clinical Laboratory Assistant Relationship Specialty Start Date End Date Aramis Cruz MD PCP - General Family Practice 03/31/24 Travis Berrios MD [address] [place] [address] DR BILL[address] [place] [id number] Surgeon Orthopedic Surgery 08/21/24
[2024-09-26 12:19] VITALS: BP 154/79; PULSE 108; RESP 18; TEMP 36.4; O2SAT 98
--- NOTE | 2024-09-26 12:53 | ED_ITS ---
HPI - Skin/Abscess/Foreign Bdy General Chief complaint: Skin/Abscess/Foreign Body Stated complaint: Skin Problem Time Seen by Provider: 09/26/24 12:17 Source: patient Mode of arrival: ambulatory Limitations: no limitations History of Present Illness HPI narrative: Patient is a 64-year-old male who presents with small bump on mid back that started draining last night. Patient was diagnosed with shingles 2/6. Patient finish course of Valtrex and shingles are healing nicely all scabbed over. Denies any fever, chills, nausea vomiting, diarrhea. Related Data Home Medications ?Medication ?Instructions ?Recorded ?Confirmed ?Last Taken ?Type albuterol 90 mcg/actuation aerosol 90 mcg inhalation Q6H PRN Dyspnea 08/30/20 09/11/24 04/05/21 10:00 History inhaler Allergies Allergy/AdvReac Type Severity Reaction Status Date / Time cat dander Allergy Severe THROAT Verified 09/11/24 15:12 SWELLING shrimp Allergy Severe THROAT Verified 09/11/24 15:12 SWELLING Review of Systems 2 Review of Systems: All systems reviewed & are unremarkable except as noted in HPI and below Constitutional: Constitutional: Denies body ache(s), Denies chills, Denies fatigue, Denies fever(s), Denies headache(s), Denies malaise and Denies weakness Eyes: Eyes: Denies blurry vision, Denies irritation and Denies loss of vision ENT: Denies otalgia, Denies headache(s), Denies nasal discharge, Denies sinus pain and Denies sore throat Cardiovascular: Cardiovascular: Denies chest pain, Denies irregular heart rhythm and Denies dyspnea Respiratory: Respiratory: Denies dyspnea Gastrointestinal: Gastrointestinal: Denies abdominal pain, Denies melena, Denies hematochezia, Denies diarrhea, Denies nausea and Denies vomiting Musculoskeletal: Musculoskeletal: Denies back pain, Denies myalgias and Denies arthralgias Integumentary/Breasts: Skin/Breast: Denies pruritus, Denies rash and Reports wounds Neurologic: Denies headache(s), Denies loss of vision and Denies weakness Psychiatric: Psychiatric: Reports no additional psychiatric complaints Endocrine: Endocrine: Denies fatigue PMFSH Past Medical History Medical History Asthma Diabetes Surgical History Surgical History History of colonoscopy History of left knee surgery History of umbilical hernia repair Family History Family History Father Heart problem Acute myocardial infarction Lung cancer Mother Hypertension Lupus Social History Social History Smoking status: Never smoker Tobacco type: cigars and smokeless tobacco Smokeless tobacco user: chewing tobacco Second hand tobacco smoke exposure: No Alcohol intake: former Alcohol use details: SOCIALLY YEARS AGO Substance use: never Do You Feel Safe in your Home?: Yes Lack of Transportation: No Lack of Food: Never True Current Housing: I Have Housing Concerned About Future Housing: No Difficulty Paying Gas/Electric Bills: No Difficulty Paying for Meds: No Currently Unemployed: No Education: Associate Degree Difficulty w/ Childcare or Family Care: No Living arrangements: with family Occupation/Education: occupation 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 There is no relevant family history pertinent to the presenting complaint. Exam 2 Const: General: cooperative, healthy appearing, comfortable, no acute distress and well nourished Nutritional Appearance: well nourished O rientation/consciousness: patient oriented x3 Limitations: no limitations HENMT: Head: normal to inspection, normocephalic and atraumatic Ears: h earing grossly normal bilaterally and external ears normal Face/Nose/Sinus: N ormal external nose present, normal facial exam and face symmetric Face and sinus: normal facial exam and face symmetric Mouth: Yes lip normal Eyes: General: appearance normal, both eyes and all related structures A lignment and Position: alignment normal and position normal Periorbital: p eriorbital findings normal Eyelids: eyelids normal Pupils: Equal, round and reactive pupils present EOM: EOMs intact bilaterally Neck: Neck: normal visual inspection, full ROM and supple Chest: Chest palpation & inspection: normal inspection of the chest Resp: Effort & Inspection: normal respiratory effort and able to speak in complete sentences Auscultation: clear to auscultation bilaterally Cardio: Rate: tachycardic Rhythm: regular rhythm Heart sounds: S1 normal heart sound present and S2 normal heart sound present GI: Inspection: normal to inspection Skin: General skin exam: normal color and no rashes or lesions noted Full body images: 1. 1.5 cm circular area of induration with central fluctuance. large amount of Purulent drainage expressed with pressure as it was already mildly draining. mild surrounding erythema. Neuro: General: patient oriented x3 and moves all extremities Cranial nerves: Yes Equal, round and reactive pupils present Speech: normal speech Gait exam (Neuro): Normal gait present Extrem: General: normal to inspection, full ROM and no edema Psych: Appearance: grossly normal and well kempt Mental Status: mental status grossly normal Speech and movement: Normal speech and movement present Affect: normal affect Attitude: cooperative Thought process: Normal thought process present Course Course Emergency Course: Patient is aware of diagnosis, understands and agrees to treatment plan. Anticipatory guidance given. Patient agrees to follow-up as directed and is aware of reasons to seek care at the emergency department. Portions of this record may have been created with voice recognition software Level of Care: Express Care Visit Vital Signs Vital signs: Vital Signs Temperature 36.4 C L 09/26/24 12:19 Pulse Rate 108 H 09/26/24 12:19 Respiratory Rate 18 09/26/24 12:19 Blood Pressure 154/79 H 09/26/24 12:19 Pulse Oximetry 98 09/26/24 12:19 Oxygen Delivery Room Air 09/26/24 12:19 Temperature 36.4 C L 09/26/24 12:19 Pulse Rate 108 H 09/26/24 12:19 Respiratory Rate 18 09/26/24 12:19 Blood Pressure 154/79 H 09/26/24 12:19 Pulse Oximetry 98 09/26/24 12:19 Oxygen Delivery Room Air 09/26/24 12:19 Reviewed MDM - Skin/Abscess/Foreign Bdy MDM Narrative Medical decision making narrative: Pt well hydrated appearing, in no respiratory distress, hemodynamically stable. Recommend supportive care. The patient is stable at time of discharge the clinical impression was discussed and the patient was given the opportunity to ask questions, which were addressed as completely as possible given the information available at present. Anticipatory guidance and return to care precautions were discussed and the importance of primary care follow-up was stressed and encouraged. The patient voiced understanding of the plan, indications to return, and the need for follow-up. Exam findings show no acute concerns or changes Patient is appropriate for outpatient treatment and follow-up. Differential Diagnosis Differential diagnosis: Likely abscess of skin or subcutaneous tissue, urticaria, allergic reaction to drug, cellulitis, insect bites and contact dermatitis Medical Records Attestation: I reviewed the patient's medical records. Discharge Plan Discharge Clinical Impression: Abscess of skin or subcutaneous tissue Qualifiers: Site of cutaneous abscess: trunk Site of cutaneous abscess of trunk: back Q ualified Code(s): L02.212 - Cutaneous abscess of back [any part, except buttock] Patient Disposition: Home, Self-Care Condition: Stable Instructions: Abscess (ED) Additional Instructions: You may shower - let the soapy water clean your wound, do not scrub it. Take antibiotics as prescribed Keep the wound covered and dry. Once a day: wash the wound with soap/water, apply bacitracin or neosporin and re-cover the wound. Follow up with your primary care physician or in the Emergency Department in 2-3 days for a wound check. Go to the Emergency Department immediately if you develop any of the following symptoms: Fevers, Increased redness or swelling around where your abscess was, Increased pain, or Generalized weakness or vomiting LYour blood pressure was elevated above 120/80 today at Urgent Care. This puts you above the threshold for follow up visit with a primary care provider. High blood pressure does not usually cause any symptoms, however it may lead to kidney failure, stroke, heart disease just to name a few if untreated . Many people are anxious when seeing a provider or nurse. As a result, you are not diagnosed with hypertension at this time unless your blood pressure is persistently high at two office visits at least one week apart. Some things that can help lower blood pressure are lifestyle modifications, such as light exercise, decreased salt in diet, and weight loss. It is important to follow up with a PCP about this within 1 week. Patient Language: Bangladeshi Prescriptions: New cephalexin 500 mg capsule 500 mg PO QID 7 Days Qty: 28 0RF mupirocin 2 % ointment 1 applic topical BID Qty: 15 0RF No Action (DME) lancets [Accu-Chek Softclix Lancets] Misc See Rx Instructions .Route Qty: 100 3RF Rx Instructions: As directed test up to 3 times a day (DME) Blood Glucose Test Strip See Rx Instructions .Route Qty: 50 3RF Rx Instructions: As directed test blood sugar tid sildenafil [Viagra] 100 mg tablet 100 mg PO DAILY PRN (Reason: sexual activity) Qty: 30 0RF Rx Instructions: administer 30 minutes to 4 hours before activity albuterol 90 mcg/actuation aerosol 90 mcg inhalation Q6H PRN (Reason: Dyspnea) lisinopril 5 mg tablet 5 mg PO DAILY Qty: 90 1RF Advair HFA 115-21 mcg/actuation HFA aerosol inhaler 2 puff inhalation BID Qty: 12 6RF Rx Instructions: administer with spacer Mounjaro 12.5 mg/0.5 mL pen injector 12.5 mg subcut WEEKLY Qty: 2 1RF albuterol sulfate 90 mcg/actuation HFA aerosol inhaler See Rx Instructions .ROUTE .COMPLEX Qty: 8.5 3RF Dose Instruction: INHALE 1 PUFF EVERY FOUR (4) HOURS NEEDED FOR SHORTNESS OF BREATH OR WHEEZING Rx Instructions: INHALE 1 PUFF EVERY FOUR (4) HOURS NEEDED FOR SHORTNESS OF BREATH OR WHEEZING metformin 500 mg tablet See Rx Instructions .ROUTE .COMPLEX Qty: 180 3RF Dose Instruction: TAKE 1 TABLET BY MOUTH TWICE DAILY Rx Instructions: TAKE 1 TABLET BY MOUTH TWICE DAILY Follow-up/Referrals: Yulisa Greene APRN [Primary Care Provider] - 3 Days Time of Disposition: 13:19
== END 2024-09-26 13:27 | disposition home or self-care (01) ==
PROVIDERS: Emergency Provider Nurse Practitioner Family; PCP Nurse Practitioner Adult Health
DX: L02.212 Cutaneous abscess of back [any part, except buttock and flank] (principal); E11.9 Type 2 diabetes mellitus without complications
CPT/HCPCS: 87070; 87075; 87205; 99213; G0463